=== PATIENT | male | born 1955 | race Caucasian/White ===

== ENCOUNTER 2018-08-23 09:31 | Emergency (ER) | payer OTHER ==
--- NOTE | 2018-08-23 09:35 | ERPHSYRPT ---
- History of Present Illness Time Seen by Provider: 08/23/18 09:34 Source: patient, family Exam Limitations: no limitations Physician History: 63 y/o white male with h/o parkinsons dz and uri recently started on zpack, presents with cough and mild soa. pt brought into ED via EMS. pt received a kenalog injection 2 days ago. pt also received a saline neb tx by EMS seating captain. pt states he is feeling better on arrival. pt denies cp, denies abd pain. pt states he would feel better if he could cough up mucous/sputum. because pts parkinsons dz, pt unable to take a deep breath or give a strong cough. Activities at Onset: none Severity of Dyspnea-Max: mild Severity of Dyspnea-Current: mild Possible Cause: occasional episodes Modifying Factors: Improves With: coughing Associated Symptoms: intermittent, cough Allergies/Adverse Reactions: No Known Drug Allergies Allergy (Verified 12/20/11 15:28) Home Medications: Aspirin 162 mg PO DAILY 12/20/11 [History] Pravastatin Sodium 40 mg PO DAILY 12/20/11 [History] Lisinopril 40 mg PO DAILY 07/28/12 [History] Carbidopa/Levodopa [Sinemet 25-250 mg Tablet] 2 tab PO TID 08/23/18 [History] Chlorthalidone 12.5 mg PO DAILY 08/23/18 [History] Clopidogrel Bisulfate 75 mg [PLAVIX 75 MG Tablet] 75 mg PO DAILY 08/23/18 [History] Cyanocobalamin (Vitamin B-12) [Vitamin B12] 5,000 mcg PO DAILY 08/23/18 [History ] Guaifenesin [Mucinex] 600 mg PO BID 08/23/18 [History] Loratadine 10 mg [Claritin 10 mg] 10 mg PO DAILY 08/23/18 [History] Metoprolol Succinate 100 mg [Toprol Xl 100 MG] 100 mg PO DAILY 08/23/18 [ History] Mirabegron [Myrbetriq] 50 mg PO DAILY 08/23/18 [History] Tamsulosin HCl 0.4 mg PO HS 08/23/18 [History] Testosterone Cypionate 100 mg IM UD 08/23/18 [History] Hx Tetanus, Diphtheria Vaccination/Date Given: Yes Hx Influenza Vaccination/Date Given: Yes (fall 2011) Hx Pneumococcal Vaccination/Date Given: No - Review of Systems Constitutional: No Symptoms Eyes: No Symptoms Ears, Nose, & Throat: No Symptoms Respiratory: Cough, Dyspnea (mild) Cardiac: No Symptoms Abdominal/Gastrointestinal: No Symptoms, No Abdominal Pain, No Nausea, No Vomiting, No Diarrhea Genitourinary Symptoms: No Symptoms Musculoskeletal: No Symptoms Skin: No Symptoms Neurological: No Symptoms Psychological: No Symptoms Endocrine: No Symptoms Hematologic/Lymphatic: No Symptoms Immunological/Allergic: No Symptoms All Other Systems: Reviewed and Negative - Past Medical History Pertinent Past Medical History: Yes Neurological History: Other ENT History: No Pertinent History Cardiac History: Coronary Artery Disease, High Cholesterol, Hypertension Respiratory History: Bronchitis, Other Endocrine Medical History: No Pertinent History Musculoskeletal History: Osteoarthritis GI Medical History: Hernia History: No Pertinent History Psycho-Social History: No Pertinent History Male Reproductive Disorders: Prostate Problems Other Medical History: HX OF PROSTATE CANCER (PER PATIENT WASN'T TREATED). STATES RECENT ASSESSMENT OF BREATHING FOUND VOCAL CORDS WEREN'T OPENING ALL THE WAY WITH DEEP BREATHING SO CAUSING SHORTNESS OF BREATH. HAD MRI AT [facility] IN [place] AND HAS F/U WITH [facility] IN JUNE - Past Surgical History Past Surgical History: Yes Neuro Surgical History: No Pertinent History Cardiac: Angioplasty Respiratory: No Pertinent History Gastrointestinal: Hernia Repair Genitourinary: No Pertinent History Musculoskeletal: No Pertinent History Male Surgical History: No Pertinent History Other Surgical History: sinus surgery - Social History Smoking Status: Former smoker Exposure to second hand smoke: Yes Drug Use: none Patient Lives Alone: No - Nursing Vital Signs Nursing Vital Signs: Initial Vital Signs Temperature 98.2 F 08/23/18 09:41 Pulse Rate 85 08/23/18 09:41 Respiratory Rate 18 08/23/18 09:41 Blood Pressure 121/86 08/23/18 09:41 O2 Sat by Pulse Oximetry 95 08/23/18 09:41 Pain Scale Pain Intensity 0 - Physical Exam General Appearance: mild distress, alert Eye Exam: PERRL/EOMI, eyes nml inspection Ears, Nose, Throat Exam: hearing grossly normal, normal ENT inspection, normal pharynx Neck Exam: normal inspection, non-tender, supple, full range of motion Respiratory Exam: normal breath sounds, lungs clear, airway intact, No chest tenderness, No respiratory distress, No accessory muscle use, No rhonchi, No wheezing, No stridor Cardiovascular/Chest Exam: normal heart sounds, regular rate/rhythm, normal peripheral pulses Abdominal/Gastrointestinal Exam: soft, normal bowel sounds, No tenderness Rectal Exam: not done Extremity Exam: non-tender, normal range of motion, normal inspection Neurologic Exam: alert, oriented x 3, cooperative, 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, normal mood/affect Skin Exam: normal color, warm, dry Lymphatic Exam: No adenopathy SpO2 Interpretation: normal O2 Delivery: Room Air - Course Nursing assessment & vital signs reviewed: Yes EKG Interpreted by Me: RATE (85), Sinus Rhythm, NORMAL AXIS, Non-specific ST Changes, Other (no change from comparison ekg dated 07/29/12 ) Ordered Tests: Active Orders 24 hr Category Date Time Status Steel Finisher STAT Care 08/23/18 09:55 Active EKG-ER Only STAT Care 08/23/18 09:53 Active IV Insertion STAT Care 08/23/18 09:53 Active Pulse Oximetry (ED) STAT Care 08/23/18 09:53 Active CHEST 1 VIEW (PORTABLE) Stat Exams 08/23/18 09:54 Taken BLOOD CULTURE Stat Lab 08/23/18 10:10 Received CBC W DIFF Stat Lab 08/23/18 10:05 Completed CMP Stat Lab 08/23/18 10:05 Completed NT PRO BNP Stat Lab 08/23/18 10:05 Completed TROPONIN Q3H Lab 08/23/18 10:05 Completed TROPONIN Q3H Lab 08/23/18 13:00 Ordered TROPONIN Q3H Lab 08/23/18 16:00 Ordered TROPONIN Q3H Lab 08/23/18 19:00 Ordered TROPONIN Q3H Lab 08/23/18 22:00 Ordered Respiratory Therapy Assessment DAILY RT 08/23/18 10:50 Completed Medication Summary Generic Name Dose Route Start Last Admin Trade Name Freq PRN Reason Stop Dose Admin Acetylcysteine 3 mg 08/23/18 11:00 Mucomyst 200 Mg/Ml IH 09/22/18 10:59 1XONLY EDENILSON Albuterol Sulfate 5 mg 08/23/18 11:00 08/23/18 10:51 Proventil Solution 2.5 Mg/0.5 Ml IH 09/22/18 10:59 2.5 mg UD EDENILSON Administration Discontinued Medications Generic Name Dose Route Start Last Admin Trade Name Freq PRN Reason Stop Dose Admin Ceftriaxone Sodium/Dextrose 1 g in 50 mls @ 100 mls/hr 08/23/18 10:50 11:09 Rocephin 1 Gm-D5w 50 Ml Bag IV 08/23/18 11:19 100 ml/hr STAT STA 100 mls/hr Administration Ceftriaxone Sodium/Dextrose Confirm 08/23/18 11:08 Rocephin 1 Gm-D5w 50 Ml Bag Administered 08/23/18 11:09 Dose 1 g in 50 mls @ ud IV .STK-MED ONE Lab/Rad Data: Laboratory Result Diagrams 08/23/18 10:05 08/23/18 10:05 Laboratory Results 08/23/18 08/23/18 08/23/18 Range/Units 10:05 10:05 10:05 WBC 11.3 H (4.0-10.5) K/mm3 RBC 5.45 (4.1-5.6) M/mm3 Hgb 17.0 (12.5-18.0) gm/dl Hct 51.6 H (42-50) % MCV 94.7 (78-100) fl MCH 31.2 (26-32) pg MCHC 32.9 (32-36) g/dl RDW 13.2 (11.5-14.0) % Plt Count 215 (150-450) K/mm3 MPV 9.1 (6-9.5) fl Gran % 76.4 H (36.0-66.0) % Eos # (Auto) 0.14 (0-0.5) Absolute Lymphs (auto) 1.61 (1.0-4.6) Absolute Monos (auto) 0.88 (0.0-1.3) Lymphocytes % 14.3 L (24.0-44.0) % Monocytes % 7.8 (0.0-12.0) % Eosinophils % 1.2 (0.00-5.0) % Basophils % 0.3 (0.0-0.4) % Absolute Granulocytes 8.62 H (1.4-6.9) Basophils # 0.03 (0-0.4) Sodium 138 (137-145) mmol/L Potassium 3.6 (3.5-5.1) mmol/L Chloride 101 (98-107) mmol/L Carbon Dioxide 29 (22-30) mmol/L Anion Gap 12.2 (5-15) MEQ/L BUN 17 (9-20) mg/dL Creatinine 0.69 (0.66-1.25) mg/dL Estimated GFR > 60.0 ML/MIN Glucose 101 (74-106) mg/dL Calcium 9.0 (8.4-10.2) mg/dL Total Bilirubin 1.10 (0.2-1.3) mg/dL AST 20 (17-59) U/L ALT 6 (0-50) U/L Alkaline Phosphatase 86 (38-126) U/L Troponin I < 0.012 (0.000-0.034) ng/mL NT-Pro-B Natriuret Pep 55.6 (0-900) pg/mL Serum Total Protein 7.3 (6.3-8.2) g/dL Albumin 4.0 (3.5-5.0) g/dL - Progress Progress: improved, re-examined Air Movement: good Progress Note: 08/23/18 10:31 prior to pt receiving mucomyst, pharmacy contacted. Yeyo is to call us back as he checks for contraindications relative to pts parkinsons dz and his medications. 08/23/18 11:16 pt did not tolerate the mucomyst neb tx. will give rocephin iv, hold steroids since he just received kenalog(long acting)steroid injection 2 days ago, and will have pt double his mucinex dosing to 2 tabs 2 times daily instead of one tab 2 times daily. Blood Culture(s) Obtained: Yes Antibiotics given: Yes Counseled pt/family regarding: lab results, diagnosis, need for follow-up, rad results - Departure Time of Disposition: 11:19 Departure Disposition: Home Clinical Impression: Bronchitis Condition: Stable Critical Care Time: No Referrals: CHRISTINA VEE MD [Primary Care Provider] - Additional Instructions: take antibiotics as prescribed. drink plenty of fluids. take 2 mucinex tablets twice daily. follow up with primary doctor on Saturday for further management.
[2018-08-23 10:35] LABS: BASOPHIL % 0.3 % (0.0-0.4); Basophil (Absolute #) 0.03 (0-0.4); Eosinophil % 1.2 % (0.00-5.0); Eosinophil (Absolute #) 0.14 (0-0.5); Granulocyte Absolute (ANC) 8.62 (1.4-6.9); Granulocytes % 76.4 % (36.0-66.0); Hematocrit 51.6 % (42-50); Lymphocyte (Absolute #) 1.61 (1.0-4.6); Lymphocytes % 14.3 % (24.0-44.0); Mean Cell Volume 94.7 fl (78-100); Mean Corpuscular Hemoglobin 31.2 pg (26-32); Mean Corpuscular Hgb Concent. 32.9 g/dl (32-36); Mean Platelet Volume 9.1 fl (6-9.5); Monocyte (Absolute #) 0.88 (0.0-1.3); Monocytes % 7.8 % (0.0-12.0); Platelet Count 215 K/mm3 (150-450); Red Blood Count 5.45 M/mm3 (4.1-5.6); Red Cell Distribution Width 13.2 % (11.5-14.0); White Blood Count 11.3 K/mm3 (4.0-10.5)
[2018-08-23 10:50] LABS: ALKALINE PHOSPHATASE 86 U/L (38-126); ANION GAP 12.2 MEQ/L (5-15); BLOOD UREA NITROGEN 17 mg/dL (9-20); CHLORIDE 101 mmol/L (98-107); Carbon Dioxide 29 mmol/L (22-30); Creatinine 1 0.69 mg/dL (0.66-1.25); Glucose 101 mg/dL (74-106); NT PRO BNP 55.6 pg/mL (0-900); Potassium 3.6 mmol/L (3.5-5.1); SGOT/AST 20 U/L (17-59); SGPT/ALT 6 U/L (0-50); SODIUM 138 mmol/L (137-145); Total Protein 7.3 g/dL (6.3-8.2)
[2018-08-23] MEDS ORDERED: ROCEPHIN 1 Gm-D5w 50 ml Bag** 1 G/50 ML IVPB IV STA (10:50)
[2018-08-23] MEDS ORDERED: PROVENTIL Solution 2.5 MG/0.5 ML IH ONE (10:51)
[2018-08-23] MEDS ORDERED: PROVENTIL Solution 2.5 MG/0.5 ML IH SCH (11:00)
[2018-08-23] MEDS ORDERED: Mucomyst 200 MG/ML IH SCH (11:00)
[2018-08-23] MEDS ORDERED: ROCEPHIN 1 Gm-D5w 50 ml Bag** 1 G/50 ML IVPB IV ONE (11:08)
[2018-08-23 11:34] VITALS: BP 115/78; PULSE 86; O2SAT 93
--- NOTE | 2018-08-23 19:34 | XRAY ---
Indication: Cough. Short of breath. Comparison: August 07, 2012. Portable chest remains clear. Heart and mediastinal structures within normal limits for AP portable technique. Bony thorax intact again with mild degenerative changes. Impression: Stable nonacute chest.
== END 2018-08-23 11:41 | disposition home or self-care (01) ==
LOC: ED 09:31
DX: J40 Bronchitis, not specified as acute or chronic (principal); J06.9 Acute upper respiratory infection, unspecified; I10 Essential (primary) hypertension; G20 Parkinson's disease; I25.10 Atherosclerotic heart disease of native coronary artery without angina pectoris; E78.00 Pure hypercholesterolemia, unspecified; M19.90 Unspecified osteoarthritis, unspecified site; Z85.46 Personal history of malignant neoplasm of prostate; Z79.899 Other long term (current) drug therapy
CPT/HCPCS: 36000; 36415; 71045; 80053; 83880; 84484; 85025; 87040; 93005; 93041; 96365; 99284; J0696

== ENCOUNTER 2019-03-03 06:21 | Observation (INO) | payer OTHER ==
--- NOTE | 2019-03-03 07:01 | ERPHSYRPT ---
- History of Present Illness Source: patient, family Exam Limitations: physical impairment Patient Subjective Stated Complaint: Weakness Triage Nursing Assessment: Patient brought into ED via EMS and transferred to bed with assist of 4. Patient A+O X 3. Patient's skin pink, warm and dry. Patient complains of generalized weakness. Patient's states patient has been getting weak since Saturday. Patient was coming out of restroom last night and legs became weak and just sat on ground. was unable to get him up so EMS was called for lift assistance only. Patient's lung noted to have wheezes throughout. No edema noted. Heart tones audible. Timing/Duration: day(s) (2) Severity: mild Associated Symptoms: cough, weakness, No nausea, No vomiting Hx Tetanus, Diphtheria Vaccination/Date Given: Yes Hx Influenza Vaccination/Date Given: Yes Hx Pneumococcal Vaccination/Date Given: No Immunizations Up to Date: Yes <ERIKA GERMAIN - Last Filed: 03/03/19 06:56> <ODILON BLANK - Last Filed: 03/03/19 09:30> - History of Present Illness Time Seen by Provider: 03/03/19 06:45 Physician History: 63 y/o white male with h/o parkinsons dz, htn, elevated cholesterol adn cadz s/ p angioplasty and h/o prostate cancer. he presents with weakness, sinus drainage and cough. denies cp, denies abd pain, denies n/v/d. sx present for 2 days. (ERIKA GERMAIN) Allergies/Adverse Reactions: No Known Drug Allergies Allergy (Verified 03/03/19 06:24) Home Medications: Aspirin 162 mg PO DAILY 12/20/11 [History] Pravastatin Sodium 40 mg PO DAILY 12/20/11 [History] Lisinopril 5 mg PO DAILY 07/28/12 [History] Carbidopa/Levodopa [Sinemet 25-250 mg Tablet] 2 tab PO QID 08/23/18 [History] Chlorthalidone 12.5 mg PO DAILY 08/23/18 [History] Cyanocobalamin (Vitamin B-12) [Vitamin B12] 5,000 mcg PO DAILY 08/23/18 [History ] Guaifenesin [Mucinex] 600 mg PO BID 08/23/18 [History] Loratadine 10 mg [Claritin 10 mg] 10 mg PO DAILY 08/23/18 [History] Metoprolol Succinate 100 mg [Toprol Xl 100 MG] 100 mg PO DAILY 08/23/18 [ History] Mirabegron [Myrbetriq] 50 mg PO DAILY 08/23/18 [History] Tamsulosin HCl 0.4 mg PO HS 08/23/18 [History] Testosterone Cypionate 100 mg IM UD 08/23/18 [History] - Review of Systems Constitutional: Weakness Eyes: No Symptoms Ears, Nose, & Throat: No Symptoms Respiratory: Cough Cardiac: No Symptoms Abdominal/Gastrointestinal: No Symptoms Genitourinary Symptoms: No Symptoms Musculoskeletal: No Symptoms Skin: No Symptoms Neurological: No Symptoms Psychological: No Symptoms Endocrine: No Symptoms <ERIKA GERMAIN - Last Filed: 03/03/19 06:56> - Past Medical History Pertinent Past Medical History: Yes Neurological History: Peripheral Neuropathy, Other ENT History: No Pertinent History Cardiac History: Hypertension Respiratory History: Other Endocrine Medical History: No Pertinent History Musculoskeletal History: Arthritis GI Medical History: Hernia History: No Pertinent History Psycho-Social History: No Pertinent History Male Reproductive Disorders: Prostate Problems Other Medical History: HX OF ARTHRITIS IN NECK AND SHOULDER PRIOR TO DX OF PARKINSONS. 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 SX HX: SINUS SURGERY, HERNIA REPAIR ABDOMINAL AND INGUINAL, CARDIAC STENTS X 2, ACHILLES TENDON REATTACHED AFTER SURGERY FOR BONE SPUR REMOVAL 03/2016. - Past Surgical History Past Surgical History: Yes Neuro Surgical History: No Pertinent History Cardiac: Angioplasty, Cardiac Stent Respiratory: No Pertinent History Gastrointestinal: Hernia Repair Genitourinary: Other Musculoskeletal: No Pertinent History Male Surgical History: No Pertinent History Other Surgical History: sinus surgery, Cardiac stent,TURP - Social History Smoking Status: Former smoker Exposure to second hand smoke: No Drug Use: none Patient Lives Alone: No <ERIKA GERMAIN - Last Filed: 03/03/19 06:56> - Physical Exam General Appearance: mild distress, alert, anxiety Eye Exam: PERRL/EOMI, eyes nml inspection Ears, Nose, Throat Exam: normal ENT inspection, TMs normal, moist mucous membranes Neck Exam: normal inspection, non-tender, supple, full range of motion Respiratory Exam: normal breath sounds, lungs clear, airway intact, No chest tenderness, No respiratory distress Cardiovascular Exam: regular rate/rhythm, normal heart sounds, normal peripheral pulses Gastrointestinal/Abdomen Exam: soft, normal bowel sounds, No tenderness Rectal Exam: not done Back Exam: normal inspection, normal range of motion, vertebral tenderness, No CVA tenderness Extremity Exam: normal inspection, normal range of motion, pelvis stable Neurologic Exam: alert, oriented x 3, cooperative, mill 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 Skin Exam: normal color, warm, dry Lymphatic Exam: No adenopathy SpO2 Interpretation: normal SpO2: 96 O2 Delivery: Room Air <ERIKA GERMAIN - Last Filed: 03/03/19 06:56> - Nursing Vital Signs Nursing Vital Signs: Initial Vital Signs Temperature 98.8 F 03/03/19 06:25 Pulse Rate 67 03/03/19 06:25 Respiratory Rate 25 H 03/03/19 06:25 Blood Pressure 110/69 03/03/19 06:25 O2 Sat by Pulse Oximetry 96 03/03/19 06:25 Pain Scale Pain Intensity 0 - Radiology Exams Chest X-ray Interpretation: Reviewed by me (per radiologist interpretation: No acute cardiopulmonary process), Other (per radiologist interpretation: A symmetric focal attenuation of the right infrahilar bronchovascular lung markings. This may be due to a combination of mild atelectasis and fascia crabbing. In early air space infiltrates is not completely excluded. Correlate clinically. There is also some minimal plate atelectasis at the left lateral lung base. no other acute cardiopulmonary disease seen.) - CT Exams Head CT Interpretation: Negative, No/Intracranial Hemorrhag (per radiologist interpretation: No acute intracranial process;), Other (no acute intracranial bleed or other definite acute intracranial process seen. There is a defect within the medial wall of each) <ODILON BLANK - Last Filed: 03/03/19 09:30> Ordered Tests: Active Orders 24 hr Category Date Time Status Director Business Travel STAT Care 03/03/19 07:03 Active IV Insertion STAT Care 03/03/19 07:03 Active Pulse Oximetry (ED) STAT Care 03/03/19 07:03 Active CHEST 1 VIEW (PORTABLE) Stat Exams 03/03/19 07:02 Completed HEAD WITHOUT CONTRAST [CT] Stat Exams 03/03/19 07:02 Completed BLOOD CULTURE Stat Lab 03/03/19 07:16 Received CBC W DIFF Stat Lab 03/03/19 06:38 Completed CMP Stat Lab 03/03/19 07:02 Completed Lactic Acid Stat Lab 03/03/19 07:02 Completed Lab/Rad Data: Laboratory Result Diagrams 03/03/19 06:38 03/03/19 07:02 Laboratory Results 03/03/19 03/03/19 03/03/19 Range/Units 07:02 07:02 06:38 WBC (4.0-10.5) K/mm3 RBC (4.1-5.6) M/mm3 Hgb (12.5-18.0) gm/dl Hct (42-50) % MCV (78-100) fl MCH (26-32) pg MCHC (32-36) g/dl RDW (11.5-14.0) % Plt Count (150-450) K/mm3 MPV (6-9.5) fl Gran % (36.0-66.0) % Eos # (Auto) (0-0.5) Absolute Lymphs (auto) (1.0-4.6) Absolute Monos (auto) (0.0-1.3) Lymphocytes % (24.0-44.0) % Monocytes % (0.0-12.0) % Eosinophils % (0.00-5.0) % Basophils % (0.0-0.4) % Absolute Granulocytes (1.4-6.9) Basophils # (0-0.4) Sodium 139 (137-145) mmol/L Potassium 3.3 L (3.5-5.1) mmol/L Chloride 100 (98-107) mmol/L Carbon Dioxide 30 (22-30) mmol/L Anion Gap 12.7 (5-15) MEQ/L BUN 17 (9-20) mg/dL Creatinine 0.58 L (0.66-1.25) mg/dL Estimated GFR > 60.0 ML/MIN Glucose 119 H (74-106) mg/dL Lactic Acid 1.6 (0.4-2.0) Calcium 9.2 (8.4-10.2) mg/dL Total Bilirubin 1.50 H (0.2-1.3) mg/dL AST 20 (17-59) U/L ALT 7 (0-50) U/L Alkaline Phosphatase 79 (38-126) U/L Serum Total Protein 7.1 (6.3-8.2) g/dL Albumin 3.9 (3.5-5.0) g/dL Influenza Type A Ag NEGATIVE (NEGATIVE) Influenza Type B Ag NEGATIVE (NEGATIVE) RSV (PCR) NEGATIVE (Negative) Group A Strep Antibody NEGATIVE (NEGATIVE) 03/03/19 Range/Units 06:38 WBC 18.4 H (4.0-10.5) K/mm3 RBC 5.45 (4.1-5.6) M/mm3 Hgb 17.8 (12.5-18.0) gm/dl Hct 52.7 H (42-50) % MCV 96.7 (78-100) fl MCH 32.7 H (26-32) pg MCHC 33.8 (32-36) g/dl RDW 13.7 (11.5-14.0) % Plt Count 172 (150-450) K/mm3 MPV 9.2 (6-9.5) fl Gran % 82.4 H (36.0-66.0) % Eos # (Auto) 0.07 (0-0.5) Absolute Lymphs (auto) 1.52 (1.0-4.6) Absolute Monos (auto) 1.61 H (0.0-1.3) Lymphocytes % 8.3 L (24.0-44.0) % Monocytes % 8.8 (0.0-12.0) % Eosinophils % 0.4 (0.00-5.0) % Basophils % 0.1 (0.0-0.4) % Absolute Granulocytes 15.17 H (1.4-6.9) Basophils # 0.02 (0-0.4) Sodium (137-145) mmol/L Potassium (3.5-5.1) mmol/L Chloride (98-107) mmol/L Carbon Dioxide (22-30) mmol/L Anion Gap (5-15) MEQ/L BUN (9-20) mg/dL Creatinine (0.66-1.25) mg/dL Estimated GFR ML/MIN Glucose (74-106) mg/dL Lactic Acid (0.4-2.0) Calcium (8.4-10.2) mg/dL Total Bilirubin (0.2-1.3) mg/dL AST (17-59) U/L ALT (0-50) U/L Alkaline Phosphatase (38-126) U/L Serum Total Protein (6.3-8.2) g/dL Albumin (3.5-5.0) g/dL Influenza Type A Ag (NEGATIVE) Influenza Type B Ag (NEGATIVE) RSV (PCR) (Negative) Group A Strep Antibody (NEGATIVE) <ERIKA GERMAIN - Last Filed: 03/03/19 06:56> - Progress Discussed with Dr.: Other (Dr Goff, covering for Dr Santos. ) Counseled pt/family regarding: lab results, diagnosis, need for follow-up, rad results <ODILON BLANK - Last Filed: 03/03/19 09:30> - Progress Progress Note: 03/03/19 07:00 transfer of care to dr. blank. he was notified of pending tests and accepts pt in transfer. (ERIKA GERMAIN) 03/03/19 07:32 reexamination, the patient is clear to auscultation with no tachypnea, no accessory muscle use, clear auscultation with equal breath sounds throughout all lung rizzo and patient maintaining above 93% on room air. patient has perennial sinus congestion daily with worse nasal drainage and sinus congestion that worsened over the past 2 days. Patient takes Claritin once daily with Mucinex. 03/03/19 09:17 Reviewed results with the patient and his family. Patient still slightly hypoxic on room air and tachypneic. With possibility of pneumonia and his clinical presentation and findings with elevated WBC, patient was recommended for admission for admission and patient and his family agreed. 03/03/19 09:22 Discussed the patient with Dr Goff, Hospitalist at [facility], covering for Dr Santos. Dr Goff accepted the patient for observation to [facility]. (ODILON BLANK) <ERIKA GERMAIN - Last Filed: 03/03/19 06:56> - Departure Departure Disposition: Observation Critical Care Time: No <ODILON BLANK - Last Filed: 03/03/19 09:30> - Departure Clinical Impression: Hypoxia, Atelectasis of both lungs, Acute recurrent maxillary sinusitis Pneumonia Qualifiers: Pneumonia type: due to unspecified organism Laterality: right Lung location: unspecified part of lung Qualified Code(s): J18.9 - Pneumonia, unspecified organism Condition: Fair Referrals: CHRISTINA SANTOS MD [Primary Care Provider] -
[2019-03-03 07:19] LABS: BASOPHIL % 0.1 % (0.0-0.4); Basophil (Absolute #) 0.02 (0-0.4); Eosinophil % 0.4 % (0.00-5.0); Eosinophil (Absolute #) 0.07 (0-0.5); Granulocyte Absolute (ANC) 15.17 (1.4-6.9); Granulocytes % 82.4 % (36.0-66.0); Hematocrit 52.7 % (42-50); Hemoglobin 17.8 gm/dl (12.5-18.0); Lymphocyte (Absolute #) 1.52 (1.0-4.6); Lymphocytes % 8.3 % (24.0-44.0); Mean Cell Volume 96.7 fl (78-100); Mean Corpuscular Hemoglobin 32.7 pg (26-32); Mean Corpuscular Hgb Concent. 33.8 g/dl (32-36); Mean Platelet Volume 9.2 fl (6-9.5); Monocyte (Absolute #) 1.61 (0.0-1.3); Monocytes % 8.8 % (0.0-12.0); Platelet Count 172 K/mm3 (150-450); Red Blood Count 5.45 M/mm3 (4.1-5.6); Red Cell Distribution Width 13.7 % (11.5-14.0); White Blood Count 18.4 K/mm3 (4.0-10.5)
[2019-03-03 07:33] LABS: ALBUMIN 3.9 g/dL (3.5-5.0); ALKALINE PHOSPHATASE 79 U/L (38-126); ANION GAP 12.7 MEQ/L (5-15); BLOOD UREA NITROGEN 17 mg/dL (9-20); CHLORIDE 100 mmol/L (98-107); Calcium 9.2 mg/dL (8.4-10.2); Carbon Dioxide 30 mmol/L (22-30); Creatinine 1 0.58 mg/dL (0.66-1.25); Glucose 119 mg/dL (74-106); Potassium 3.3 mmol/L (3.5-5.1); SGOT/AST 20 U/L (17-59); SGPT/ALT 7 U/L (0-50); SODIUM 139 mmol/L (137-145); Total Protein 7.1 g/dL (6.3-8.2)
[2019-03-03 07:58] LABS: Group A Strep NEGATIVE (NEGATIVE)
[2019-03-03 08:21] LABS: INFLUENZA A NEGATIVE (NEGATIVE); INFLUENZA B NEGATIVE (NEGATIVE); RESPIRATORY SYNCTIAL VIRUS NEGATIVE (Negative)
--- NOTE | 2019-03-03 09:00 | XRAY ---
Exam: CT of the head without IV contrast from 03/03/2019. CTDI: 67.41 mGy. Comparison: None. Indication: 63-year-old male with weakness for 2-3 days, sinus drainage with pressure. Technique: Non-IV contrast axial images were obtained through the brain. Reconstructed coronal and sagittal images were created and reviewed. Findings: Occasional minimal motion artifact is seen. The ventricles appear of normal size and configuration. The head is slightly tilted in the CT gantry. No focal mass effect or definite midline shift is seen. Incidental heavy dural calcification is seen within the anterior aspect of the interhemispheric fissure. No acute intracranial bleed or abnormal extra-axial fluid collection is seen. The nelson matter-white matter interfaces appear unremarkable. No low attenuation territorial infarct or focal edema is seen. The cortical sulci and basilar cisterns appear unremarkable for age. Moderate peripheral mucoperiosteal thickening is seen within the left maxillary antrum with mild strand-like opacification at the superior posterior margin of the left maxillary antrum. No significant air-fluid level is seen. There is also questionable minimal mucosal thickening at the medial margin of the right maxillary sinus. The ostiomeatal complex on the left is either severely narrowed or blocked. The ostiomeatal complex on the right appears open. There is a bone defect within the medial wall of each maxillary sinus suggesting prior's paranasal sinus surgery. Mild deviation of the nasal septum toward the right is seen. The frontal and ethmoid sinuses appear unremarkable. The sphenoid sinus appears unremarkable. The orbits appear grossly unremarkable. The mastoid air cells are well aerated without effusion. The calvarium of the skull appears intact. Impression: 1. Occasional minimal motion artifact. 2. No acute intracranial bleed or other definite acute intracranial process is seen. 3. There is a defect within the medial wall of each maxillary sinus suggesting prior paranasal sinus surgery. Residual left maxillary sinus disease is seen manifested by mild to moderate scattered mucoperiosteal thickening as well as a small amount of strand-like opacity at the superior posterior margin of the left maxillary sinus. No significant air-fluid level is seen. The left ostiomeatal complex is either severely narrowed or blocked. There is mild deviation of the nasal septum toward the right. No other significant paranasal sinus mucosal abnormality is seen.
--- NOTE | 2019-03-03 09:03 | XRAY ---
Exam: AP upright portable chest film from 03/03/2019. Comparison: Two-view chest from 09/16/2018. Indication: 63-year-old male with weakness for 3 days, history of coronary artery stents. Findings: The transverse heart size appears within normal limits for this AP portable technique. The nolberto and mediastinal structures reveal no abnormal soft tissue masses or definite pathologic lymphadenopathy. There is mild tortuosity of the descending thoracic aorta. The lungs are adequately inflated. There is some accentuation of the bronchovascular lung markings within the right infrahilar projection which could represent a combination of atelectasis and vascular crowding. An early airspace infiltrate is not completely excluded. Correlate clinically. I also note minimal transverse plate atelectasis at the lateral left lung base. The remainder of the lung rizzo appears clear. No pulmonary vascular redistribution to the upper lung rizzo, pneumothorax, Krissy B-lines, or pleural fluid is seen. Moderate lateral osteophytes are seen within the lower thoracic spine. No acute osseous process is seen. Impression: 1. There is some asymmetric focal accentuation of the right infrahilar bronchovascular lung markings. This may be due to a combination of mild atelectasis and vascular crowding. An early airspace infiltrate is not completely excluded. Correlate clinically. 2. There is also some minimal plate atelectasis at the lateral left lung base. 3. No other acute cardiac pulmonary disease is seen.
[2019-03-03] MEDS ORDERED: ROCEPHIN 1 Gm-D5w 50 ml Bag** 1 G/50 ML IVPB IV STA (09:20)
[2019-03-03] MEDS ORDERED: ROCEPHIN 1 Gm-D5w 50 ml Bag** 1 G/50 ML IVPB IV ONE (09:35)
[2019-03-03] MEDS ORDERED: Zithromax 250 MG TABLET PO SCH (10:02)
[2019-03-03] MEDS: ROCEPHIN 1 Gm-D5w 50 ml Bag** 1 G/50 ML IVPB IV SCH (10:06)
[2019-03-03] MEDS: Sodium Chloride 0.9% 1000 ML 1,000 ML IV SCH (10:21)
[2019-03-03 10:52] LABS: Slide Review 1 YES
[2019-03-03] MEDS: Zithromax 500 MG/ 250 ML NaCl Premix 500 MG/250 ML IVPB IV SCH (11:43)
[2019-03-03] MEDS ORDERED: DUONEB 0.5-3 MG/3 ml Neb IH SCH (13:00)
[2019-03-03] MEDS ORDERED: PROVENTIL 2.5 MG/3 ML NEB IH PRN (13:00)
[2019-03-03] MEDS ORDERED: DEPO-TESTOSTERONE IM SCH (13:30)
[2019-03-03] MEDS ORDERED: MEDICATION INTERVENTION PO SCH ×4 (13:45)
[2019-03-03] MEDS: Mucinex 600MG ER Tabs PO SCH ×2 (14:15→20:25)
[2019-03-03] MEDS: Toprol Xl 100 MG PO SCH (14:16)
[2019-03-03] MEDS: CLARITIN 10 MG PO SCH (14:16)
[2019-03-03] MEDS: ZOCOR 20MG PO SCH (14:16)
[2019-03-03] MEDS: ECOTRIN 81 MG PO SCH (14:16)
[2019-03-03] MEDS: Sinemet 25/250 MG PO SCH ×2 (16:10→20:25)
[2019-03-03] MEDS: Colace 100 MG PO PRN (20:23)
[2019-03-03] MEDS: Flomax 0.4 MG PO SCH (20:25)
[2019-03-03] MEDS: TYLENOL 325 MG PO PRN (22:57)
[2019-03-04] MEDS: Sinemet 25/250 MG PO SCH ×4 (05:20→20:25)
[2019-03-04 06:24] LABS: Hematocrit 50.1 % (42-50); Hemoglobin 16.2 gm/dl (12.5-18.0); Mean Cell Volume 98.4 fl (78-100); Mean Corpuscular Hemoglobin 31.8 pg (26-32); Mean Corpuscular Hgb Concent. 32.3 g/dl (32-36); Platelet Count 165 K/mm3 (150-450); Red Blood Count 5.09 M/mm3 (4.1-5.6); Red Cell Distribution Width 13.9 % (11.5-14.0); White Blood Count 13.3 K/mm3 (4.0-10.5)
[2019-03-04 06:36] LABS: ANION GAP 11.1 MEQ/L (5-15); BLOOD UREA NITROGEN 17 mg/dL (9-20); CHLORIDE 100 mmol/L (98-107); Calcium 8.8 mg/dL (8.4-10.2); Carbon Dioxide 29 mmol/L (22-30); Creatinine 1 0.59 mg/dL (0.66-1.25); Glucose 86 mg/dL (74-106); Potassium 3.2 mmol/L (3.5-5.1); SODIUM 137 mmol/L (137-145)
--- NOTE | 2019-03-04 09:17 | PCM.HP ---
History of Present Illness - Chief Complaint Chief Complaint: WEAKNESS Date: 03/03/19 History of Present Illness: is a 63 year old male. Pt. presents to ER with complaints of extremity weakness. Pt. notes some SOB, but close to his normal level of sob. Pt. notes symptoms began a couple of days ago, with sinus drainage. Pt. also relays he is due for his IV immunoglobin treatment soon. - Review of Systems Constitutional: Other (subjective fever), No Fever, No Chills Eyes: No Symptoms Ears, Nose, & Throat: Nose Congestion, Nose Discharge, Sinus Drainage, No Ear Discharge, No Hearing Changes, No Tinnitus, No Nose Pain, No Mouth Swelling, No Throat Pain, No Throat Swelling Respiratory: Short Of Breath, No Cough Cardiac: No Chest Pain, No Edema, No Palpitations, No Orthopnea Abdominal/Gastrointestinal: No Abdominal Pain, No Nausea, No Vomiting, No Diarrhea Genitourinary Symptoms: No Dysuria Musculoskeletal: No Back Pain, No Neck Pain Skin: No Rash Medications & Allergies Home Medications: Home Medication List Pravastatin Sodium 40 mg PO DAILY 12/20/11 [History Confirmed 03/03/19] Lisinopril 5 mg PO DAILY 07/28/12 [History Confirmed 03/03/19] Carbidopa/Levodopa [Sinemet 25-250 mg Tablet] 2 tab PO QID 08/23/18 [History Confirmed 03/03/19] Chlorthalidone 12.5 mg PO DAILY 08/23/18 [History Confirmed 03/03/19] Cyanocobalamin (Vitamin B-12) [Vitamin B12] 5,000 mcg PO DAILY 08/23/18 [ History Confirmed 03/03/19] Guaifenesin [Mucinex] 600 mg PO BID 08/23/18 [History Confirmed 03/03/19] Loratadine 10 mg [Claritin 10 mg] 10 mg PO DAILY 08/23/18 [History Confirmed 03/03/19] Metoprolol Succinate 100 mg [Toprol Xl 100 MG] 100 mg PO DAILY 08/23/18 [ History Confirmed 03/03/19] Tamsulosin HCl 0.4 mg PO HS 08/23/18 [History Confirmed 03/03/19] Testosterone Cypionate 100 mg IM UD 08/23/18 [History Confirmed 03/03/19] Aspirin 81 gm Chew [Baby Aspirin 81 mg Chew] 2 tab PO DAILY 03/03/19 [ History Confirmed 03/03/19] Mirabegron [Myrbetriq] 50 mg PO DAILY 03/03/19 [History Confirmed 03/03/19] Allergies/Adverse Reactions: Allergies Allergy/AdvReac Type Severity Reaction Status Date / Time No Known Drug Allergies Allergy Verified 03/03/19 06:24 - Past Medical History Past Medical History: Yes Neurological History: Peripheral Neuropathy, Other ENT History: 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 SX HX: SINUS SURGERY, HERNIA REPAIR ABDOMINAL AND INGUINAL, CARDIAC STENTS X 2, ACHILLES TENDON REATTACHED AFTER SURGERY FOR BONE SPUR REMOVAL 03/2016. - Past Surgical History Past Surgical History: Yes Neuro Surgical History: No Pertinent History Cardiac History: Angioplasty, Cardiac Stent Respiratory Surgery: No Pertinent History GI Surgical History: Hernia Repair Genitourinary Surgical Hx: Other Musculskeletal Surgical Hx: No Pertinent History Male Surgical History: No Pertinent History Other Surgical History: sinus surgery, Cardiac stent,TURP - Social History Smoking Status: Former smoker Exposure to second hand smoke: No Alcohol: None Drug Use: none - Physical Exam Vital Signs: Vital Signs - 24 hr Temp Pulse Resp BP Pulse Ox 03/04/19 07:50 94 L 03/04/19 07:29 98.1 F 74 18 117/79 93 L 03/04/19 04:00 98.3 F 82 18 129/80 93 L 03/03/19 23:39 99.2 F 81 19 117/69 93 L 03/03/19 20:00 98.8 F 83 19 122/71 92 L 03/03/19 19:59 71 18 92 L 03/03/19 16:00 98.6 F 94 H 20 136/73 95 03/03/19 11:52 93 L 03/03/19 11:38 92 H 20 93 L 03/03/19 11:10 98.2 F 90 18 111/67 95 03/03/19 10:21 98.2 F 03/03/19 10:14 98.2 F 03/03/19 10:02 98.2 F General Appearance: no apparent distress Neurologic Exam: alert, oriented x 3, cooperative, normal mood/affect Eye Exam: PERRL/EOMI Ears, Nose, Throat Exam: normal ENT inspection, moist mucous membranes Neck Exam: normal inspection Respiratory Exam: prolonged expirations Cardiovascular Exam: regular rate/rhythm Gastrointestinal/Abdomen Exam: soft, normal bowel sounds, No tenderness, No distention, No mass, No guarding Extremity Exam: normal inspection Skin Exam: normal color, warm, dry, No rash, No petechiae Lymphatic Exam: No adenopathy Results - Labs Lab/Micro Results: Lab Results-Last 24 Hours 03/03/19 03/03/19 03/04/19 Range/Units 06:38 13:11 05:00 WBC 13.3 H (4.0-10.5) K/mm3 RBC 5.09 (4.1-5.6) M/mm3 Hgb 16.2 (12.5-18.0) gm/dl Hct 50.1 H (42-50) % MCV 98.4 (78-100) fl MCH 31.8 (26-32) pg MCHC 32.3 (32-36) g/dl RDW 13.9 (11.5-14.0) % Plt Count 165 (150-450) K/mm3 MPV 9.0 (6-9.5) fl Sodium (137-145) mmol/L Potassium (3.5-5.1) mmol/L Chloride (98-107) mmol/L Carbon Dioxide (22-30) mmol/L Anion Gap (5-15) MEQ/L BUN (9-20) mg/dL Creatinine (0.66-1.25) mg/dL Estimated GFR ML/MIN Glucose (74-106) mg/dL Calcium (8.4-10.2) mg/dL Troponin I < 0.012 (0.000-0.034) ng/mL Slides for Path Review YES 03/04/19 Range/Units 05:00 WBC (4.0-10.5) K/mm3 RBC (4.1-5.6) M/mm3 Hgb (12.5-18.0) gm/dl Hct (42-50) % MCV (78-100) fl MCH (26-32) pg MCHC (32-36) g/dl RDW (11.5-14.0) % Plt Count (150-450) K/mm3 MPV (6-9.5) fl Sodium 137 (137-145) mmol/L Potassium 3.2 L (3.5-5.1) mmol/L Chloride 100 (98-107) mmol/L Carbon Dioxide 29 (22-30) mmol/L Anion Gap 11.1 (5-15) MEQ/L BUN 17 (9-20) mg/dL Creatinine 0.59 L (0.66-1.25) mg/dL Estimated GFR > 60.0 ML/MIN Glucose 86 (74-106) mg/dL Calcium 8.8 (8.4-10.2) mg/dL Troponin I (0.000-0.034) ng/mL Slides for Path Review - Radiology Impressions Radiology Exams & Impressions: Radiology Procedures Category Date Time Status CHEST 1 VIEW (PORTABLE) Stat Exams 03/03/19 07:02 Completed HEAD WITHOUT CONTRAST [CT] Stat Exams 03/03/19 07:02 Completed - Other Procedures and Tests Respiratory Therapy 03/03/19 10:02 Oxygen Nasal Cannula 2 lpm 03/03/19 11:38 Respiratory Therapy Assessment DAILY 03/03/19 13:00 Incentive Spirometry TID Assessment/Plan (1) Acute recurrent maxillary sinusitis Current Visit: Yes Status: Acute Code(s): J01.01 - ACUTE RECURRENT MAXILLARY SINUSITIS (2) Pneumonia Current Visit: Yes Status: Acute Qualifiers: Pneumonia type: due to unspecified organism Laterality: right Lung location: unspecified part of lung Qualified Code(s): J18.9 - Pneumonia, unspecified organism Code(s): J18.9 - PNEUMONIA, UNSPECIFIED ORGANISM
[2019-03-04] MEDS: ROCEPHIN 1 Gm-D5w 50 ml Bag** 1 G/50 ML IVPB IV SCH (09:41)
[2019-03-04] MEDS: Toprol Xl 100 MG PO SCH (09:41)
[2019-03-04] MEDS: Mucinex 600MG ER Tabs PO SCH ×2 (09:41→20:24)
[2019-03-04] MEDS: ZOCOR 20MG PO SCH (09:41)
[2019-03-04] MEDS: CLARITIN 10 MG PO SCH (09:41)
[2019-03-04] MEDS: ECOTRIN 81 MG PO SCH (09:42)
--- NOTE | 2019-03-04 09:51 | PCM.NOTE ---
Date and Time: 03/04/19948 Subjective Assessment: patient reports he has not been up moving so unsure if his weakness is any better. has advanced parkinsonism so struggles to cough at all Objective Exam General Appearance: no apparent distress Neurologic Exam: alert, oriented x 3, other (speech is slow, movements are slow) Respiratory Exam: normal breath sounds, lungs clear, prolonged expirations, No respiratory distress Cardiovascular Exam: regular rate/rhythm, normal heart sounds Gastrointestinal/Abdomen Exam: soft, No tenderness, No mass Extremity Exam: normal inspection, normal range of motion OBJECTIVE DATA Vital Signs: Vital Signs - 24 hr Temp Pulse Resp BP Pulse Ox 03/04/19 07:50 94 L 03/04/19 07:29 98.1 F 74 18 117/79 93 L 03/04/19 04:00 98.3 F 82 18 129/80 93 L 03/03/19 23:39 99.2 F 81 19 117/69 93 L 03/03/19 20:00 98.8 F 83 19 122/71 92 L 03/03/19 19:59 71 18 92 L 03/03/19 16:00 98.6 F 94 H 20 136/73 95 03/03/19 11:52 93 L 03/03/19 11:38 92 H 20 93 L 03/03/19 11:10 98.2 F 90 18 111/67 95 03/03/19 10:21 98.2 F 90 18 111/67 95 03/03/19 10:14 98.2 F 90 18 111/67 95 03/03/19 10:02 98.2 F 90 18 111/67 95 Pain Assessment - Last Documented Pain Intensity 0 Pain Scale Used 0-10 Pain Scale Intake and Output: Intake & Output 03/01/19 03/02/19 03/03/19 03/04/19 11:59 11:59 11:59 11:59 Intake Total 2886 Output Total 150 Balance 2736 Weight 121.7 kg 121.6 kg Lab Results: Lab Results-Last 24 Hours 03/03/19 03/03/19 03/04/19 Range/Units 06:38 13:11 05:00 WBC 13.3 H (4.0-10.5) K/mm3 RBC 5.09 (4.1-5.6) M/mm3 Hgb 16.2 (12.5-18.0) gm/dl Hct 50.1 H (42-50) % MCV 98.4 (78-100) fl MCH 31.8 (26-32) pg MCHC 32.3 (32-36) g/dl RDW 13.9 (11.5-14.0) % Plt Count 165 (150-450) K/mm3 MPV 9.0 (6-9.5) fl Sodium (137-145) mmol/L Potassium (3.5-5.1) mmol/L Chloride (98-107) mmol/L Carbon Dioxide (22-30) mmol/L Anion Gap (5-15) MEQ/L BUN (9-20) mg/dL Creatinine (0.66-1.25) mg/dL Estimated GFR ML/MIN Glucose (74-106) mg/dL Calcium (8.4-10.2) mg/dL Troponin I < 0.012 (0.000-0.034) ng/mL Slides for Path Review YES 03/04/19 Range/Units 05:00 WBC (4.0-10.5) K/mm3 RBC (4.1-5.6) M/mm3 Hgb (12.5-18.0) gm/dl Hct (42-50) % MCV (78-100) fl MCH (26-32) pg MCHC (32-36) g/dl RDW (11.5-14.0) % Plt Count (150-450) K/mm3 MPV (6-9.5) fl Sodium 137 (137-145) mmol/L Potassium 3.2 L (3.5-5.1) mmol/L Chloride 100 (98-107) mmol/L Carbon Dioxide 29 (22-30) mmol/L Anion Gap 11.1 (5-15) MEQ/L BUN 17 (9-20) mg/dL Creatinine 0.59 L (0.66-1.25) mg/dL Estimated GFR > 60.0 ML/MIN Glucose 86 (74-106) mg/dL Calcium 8.8 (8.4-10.2) mg/dL Troponin I (0.000-0.034) ng/mL Slides for Path Review Radiology Exams: Radiology Procedures Category Date Time Status CHEST 1 VIEW (PORTABLE) Stat Exams 03/03/19 07:02 Completed HEAD WITHOUT CONTRAST [CT] Stat Exams 03/03/19 07:02 Completed Assessment/Plan (1) Pneumonia Current Visit: Yes Status: Acute Qualifiers: Pneumonia type: due to unspecified organism Laterality: right Lung location: unspecified part of lung Qualified Code(s): J18.9 - Pneumonia, unspecified organism Assessment & Plan: continue current treatment Code(s): J18.9 - PNEUMONIA, UNSPECIFIED ORGANISM (2) Weakness Current Visit: Yes Status: Acute Assessment & Plan: likely secondary to parkinsons and worsened with current infection, consult PT Code(s): R53.1 - WEAKNESS (3) Parkinson disease Current Visit: Yes Status: Acute Code(s): G20 - PARKINSON'S DISEASE
[2019-03-04] MEDS ORDERED: BABY ASPIRIN 81 MG CHEW PO SCH (10:00)
[2019-03-04] MEDS ORDERED: NON-FORMULARY ITEM (Pravastatin Sodium [Pravastatin Sodium] 40 MG) PO SCH (10:00)
[2019-03-04] MEDS ORDERED: CYANOCOBALAMIN 5000 MCG PO SCH (10:00)
[2019-03-04] MEDS ORDERED: CHLORTHALIDONE 12.5 MG PO SCH (10:00)
[2019-03-04] MEDS: Zithromax 500 MG/ 250 ML NaCl Premix 500 MG/250 ML IVPB IV SCH (10:26)
[2019-03-04] MEDS: Flomax 0.4 MG PO SCH (20:24)
[2019-03-04] MEDS: Colace 100 MG PO PRN (20:28)
[2019-03-04] MEDS: Sodium Chloride 0.9% 1000 ML 1,000 ML IV SCH (21:33)
[2019-03-05] MEDS: Sinemet 25/250 MG PO SCH ×4 (05:50→20:07)
--- NOTE | 2019-03-05 08:46 | PCM.NOTE ---
Date and Time: 03/05/19 0844 Subjective Assessment: patient is still very weak, didn't sleep well last night. urinating often with IV fluids, po intake is good. has some mild cough but has difficulty coughing due to parkinsons Objective Exam General Appearance: no apparent distress Neurologic Exam: alert, oriented x 3, cooperative Respiratory Exam: diminished breath sounds, prolonged expirations Cardiovascular Exam: regular rate/rhythm, normal heart sounds Gastrointestinal/Abdomen Exam: soft, No tenderness, No mass Extremity Exam: normal inspection, normal range of motion OBJECTIVE DATA Vital Signs: Vital Signs - 24 hr Temp Pulse Resp BP Pulse Ox 03/05/19 08:00 98.8 F 80 32 H 119/70 93 L 03/05/19 04:00 98.6 F 87 19 129/81 94 L 03/04/19 23:35 98.7 F 74 19 133/84 94 L 03/04/19 19:47 98.6 F 79 18 145/80 94 L 03/04/19 19:35 77 14 95 03/04/19 16:00 97.5 F 81 20 129/82 91 L 03/04/19 12:00 98.4 F 81 18 108/66 94 L Pain Assessment - Last Documented Pain Intensity 0 Pain Scale Used 0-10 Pain Scale Intake and Output: Intake & Output 03/02/19 03/03/19 03/04/19 03/05/19 11:59 11:59 11:59 11:59 Intake Total 3366 2529 Output Total 150 150 Balance 3216 2379 Weight 121.7 kg 121.6 kg Assessment/Plan (1) Pneumonia Current Visit: Yes Status: Acute Qualifiers: Pneumonia type: due to unspecified organism Laterality: right Lung location: unspecified part of lung Qualified Code(s): J18.9 - Pneumonia, unspecified organism Assessment & Plan: continue rocephin and zithromax, d/c iv fluids and check labs in am. clinically improving Code(s): J18.9 - PNEUMONIA, UNSPECIFIED ORGANISM (2) Weakness Current Visit: Yes Status: Acute Assessment & Plan: offered rehab stay, family to discuss. continue PT at this time. Code(s): R53.1 - WEAKNESS (3) Parkinson disease Current Visit: Yes Status: Acute Code(s): G20 - PARKINSON'S DISEASE
[2019-03-05] MEDS: ROCEPHIN 1 Gm-D5w 50 ml Bag** 1 G/50 ML IVPB IV SCH (08:52)
[2019-03-05] MEDS: Mucinex 600MG ER Tabs PO SCH ×2 (08:53→21:50)
[2019-03-05] MEDS: CLARITIN 10 MG PO SCH (08:53)
[2019-03-05] MEDS: ECOTRIN 81 MG PO SCH (08:53)
[2019-03-05] MEDS: ZOCOR 20MG PO SCH (08:53)
[2019-03-05] MEDS: Toprol Xl 100 MG PO SCH (08:53)
[2019-03-05] MEDS ORDERED: Vitamin B-12 500 MCG PO SCH (10:00)
[2019-03-05] MEDS: Zithromax 500 MG/ 250 ML NaCl Premix 500 MG/250 ML IVPB IV SCH (10:11)
[2019-03-05] MEDS: Sodium Chloride 0.9% 10 ML FLUSH Syringe IV SCH ×2 (18:14→21:51)
[2019-03-05] MEDS: NON-FORMULARY ITEM PO SCH (18:35)
[2019-03-05] MEDS: BENADRYL 25 MG CAPSULE PO PRN (21:49)
[2019-03-05] MEDS: Flomax 0.4 MG PO SCH (21:49)
[2019-03-05] MEDS: TYLENOL 325 MG PO PRN (21:50)
[2019-03-05] MEDS: Colace 100 MG PO PRN (21:51)
[2019-03-06 05:03] LABS: BASOPHIL % 0.3 % (0.0-0.4); Basophil (Absolute #) 0.02 (0-0.4); Eosinophil % 2.7 % (0.00-5.0); Eosinophil (Absolute #) 0.19 (0-0.5); Granulocyte Absolute (ANC) 4.47 (1.4-6.9); Granulocytes % 64.4 % (36.0-66.0); Hematocrit 48.5 % (42-50); Hemoglobin 15.7 gm/dl (12.5-18.0); Lymphocyte (Absolute #) 1.45 (1.0-4.6); Lymphocytes % 20.9 % (24.0-44.0); Mean Corpuscular Hemoglobin 31.4 pg (26-32); Mean Corpuscular Hgb Concent. 32.4 g/dl (32-36); Mean Platelet Volume 8.7 fl (6-9.5); Monocyte (Absolute #) 0.81 (0.0-1.3); Monocytes % 11.7 % (0.0-12.0); Platelet Count 177 K/mm3 (150-450); Red Cell Distribution Width 13.5 % (11.5-14.0); White Blood Count 6.9 K/mm3 (4.0-10.5)
[2019-03-06 05:28] LABS: ALBUMIN 3.3 g/dL (3.5-5.0); ALKALINE PHOSPHATASE 68 U/L (38-126); BLOOD UREA NITROGEN 14 mg/dL (9-20); CHLORIDE 103 mmol/L (98-107); Calcium 8.7 mg/dL (8.4-10.2); Carbon Dioxide 29 mmol/L (22-30); Creatinine 1 0.51 mg/dL (0.66-1.25); Glucose 87 mg/dL (74-106); MAGNESIUM 1.9 mg/dL (1.6-2.3); Potassium 3.3 mmol/L (3.5-5.1); SGOT/AST 19 U/L (17-59); SODIUM 140 mmol/L (137-145); Total Protein 6.3 g/dL (6.3-8.2)
[2019-03-06] MEDS: Sinemet 25/250 MG PO SCH ×4 (05:28→19:57)
[2019-03-06 05:29] LABS: SGPT/ALT 5 U/L (0-50)
[2019-03-06] MEDS: Sodium Chloride 0.9% 10 ML FLUSH Syringe IV SCH ×3 (05:46→19:57)
--- NOTE | 2019-03-06 08:17 | PCM.NOTE ---
Date and Time: 03/06/19814 Subjective Assessment: patient notes some improvement in his strength, still weak and has difficulty ambulating. no new concerns. Objective Exam General Appearance: no apparent distress, obese Neurologic Exam: alert, oriented x 3, other (slow speech, difficult to understand, slow movements) Skin Exam: normal color, warm, dry Respiratory Exam: normal breath sounds, lungs clear, No respiratory distress Cardiovascular Exam: regular rate/rhythm, normal heart sounds Gastrointestinal/Abdomen Exam: soft, No tenderness, No mass OBJECTIVE DATA Vital Signs: Vital Signs - 24 hr Temp Pulse Resp BP Pulse Ox 03/06/19 07:32 97.7 F 71 24 128/73 90 L 03/06/19 07:09 79 16 95 03/06/19 04:00 98.1 F 79 19 144/86 94 L 03/05/19 23:35 97.8 F 75 20 135/87 94 L 03/05/19 20:36 79 20 94 L 03/05/19 19:33 97.7 F 71 19 135/85 94 L 03/05/19 15:46 98.6 F 75 22 147/93 95 03/05/19 11:24 98.1 F 75 22 128/79 91 L 03/05/19 09:11 93 L Pain Assessment - Last Documented Pain Intensity 0 Pain Scale Used [facility] Intake and Output: Intake & Output 03/03/19 03/04/19 03/05/19 03/06/19 11:59 11:59 11:59 11:59 Intake Total 3366 2529 2260 Output Total 150 150 Balance 3216 2379 2260 Weight 121.7 kg 121.6 kg 124 kg Lab Results: Lab Results-Last 24 Hours 03/06/19 03/06/19 Range/Units 04:40 04:40 WBC 6.9 (4.0-10.5) K/mm3 RBC 5.00 (4.1-5.6) M/mm3 Hgb 15.7 (12.5-18.0) gm/dl Hct 48.5 (42-50) % MCV 97.0 (78-100) fl MCH 31.4 (26-32) pg MCHC 32.4 (32-36) g/dl RDW 13.5 (11.5-14.0) % Plt Count 177 (150-450) K/mm3 MPV 8.7 (6-9.5) fl Gran % 64.4 (36.0-66.0) % Eos # (Auto) 0.19 (0-0.5) Absolute Lymphs (auto) 1.45 (1.0-4.6) Absolute Monos (auto) 0.81 (0.0-1.3) Lymphocytes % 20.9 L (24.0-44.0) % Monocytes % 11.7 (0.0-12.0) % Eosinophils % 2.7 (0.00-5.0) % Basophils % 0.3 (0.0-0.4) % Absolute Granulocytes 4.47 (1.4-6.9) Basophils # 0.02 (0-0.4) Sodium 140 (137-145) mmol/L Potassium 3.3 L (3.5-5.1) mmol/L Chloride 103 (98-107) mmol/L Carbon Dioxide 29 (22-30) mmol/L Anion Gap 11.0 (5-15) MEQ/L BUN 14 (9-20) mg/dL Creatinine 0.51 L (0.66-1.25) mg/dL Estimated GFR > 60.0 ML/MIN Glucose 87 (74-106) mg/dL Calcium 8.7 (8.4-10.2) mg/dL Magnesium 1.9 (1.6-2.3) mg/dL Total Bilirubin 0.50 (0.2-1.3) mg/dL AST 19 (17-59) U/L ALT 5 (0-50) U/L Alkaline Phosphatase 68 (38-126) U/L Serum Total Protein 6.3 (6.3-8.2) g/dL Albumin 3.3 L (3.5-5.0) g/dL Multi-Disciplinary Progress Notes: Multi-Disciplinary Progress Notes 03/05/19 15:30 (created 03/05/19 15:49) Case Management Note by Kemi Mcmanus CALLED BACK, REPORTS THAT PRECERT HAS BEEN INITIATED, AND ALSO REPORTS THAT ACCORDING TO INSURANCE, [employer] IS IN NETWORK. HOPEFUL TO HEAR SOMETHING BACK TOMORROW. Initialized on 03/05/19 15:49 - END OF NOTE 03/05/19 15:00 (created 03/05/19 15:47) Case Management Note by Kemi Mcmanus SPOKE WITH , CHINO, SHE TOO IS IN AGREEMENT WITH REHAB STAY IF INSURANCE WILL APPROVE. ALSO, BACKUP PLAN DISCUSSED HOME WITH [facility]. CHINO REPORTS THAT SHE WILL TALK TO PT MOLINA. Initialized on 03/05/19 15:47 - END OF NOTE 03/05/19 14:00 (created 03/05/19 15:49) Case Management Note by Kemi Mcmanus REFERRAL FAXED TO [facility]. CALL TO HALLE TO REPORT. Initialized on 03/05/19 15:49 - END OF NOTE 03/05/19 13:47 Physical Therapy Note by Stephanie Marie PATIENT SEEN AGAIN THIS P.M. AGREED TO GET INTO BED TO WORK ON TRANSFERS AND EXERCISES. PATIENT STOOD FROM CHAIR WITH SBA ONLY. PERFORMED PIVOT TRANSFER WITH ROLLATOR AND CGA. NO LOSS OF BALANCE BUT DECREASED FOOT CLEARANCE. REQUIRED ASSIST FOR LOWER EXTREMITY PLACEMENT INTO BED AND USE OF OVERHEAD TRAPEZE TO POSITION SELF APPROPRIATELY IN BED. IN SUPINE PERFORMED SLR, HOOKLYING HIP FLEXION, LOWER TRUNK ROTATION, HIP AB/ADDUCTION, AND HEEL SLIDES. ABLE TO PERFORM 10 REPS ACTIVELY ON LEFT AND 5 REPS ACTIVELY ON RIGHT THEN ACTIVE ASSISTED. AFTER EXERCISES PERFORMED SUPINE TO SIT TRANSFER WITH TRAPEZE BAR AND MIN ASSIST. PATIENT STOOD AND AMBULATED 8' THEN TURN TO SIT IN CHAIR. NO LOSS OF BALANCE BUT SLOW AND UNABLE TO CLEAR RIGHT FOOT FULLY. STAND TO SIT WITH CGA. RECOMMENDING REHAB STAY IF INSURANCE APPROVES AND AT [facility] FOR CONTINUED THERAPY. DISCHARGE PLANNING AWARE OF P.T. RECOMMENDATIONS. Initialized on 03/05/19 13:47 - END OF NOTE 03/05/19 13:00 (created 03/05/19 15:44) Case Management Note by Kemi Mcmanus SPOKE WITH PT ABOUT POSSIBLE REHAB STAY AT [facility] ON DISCHARGE. DR. VEE HAD TALKED WITH PT WHEN HE MADE ROUNDS THIS MORNING. PT IS AGREEABLE TO GO FOR SHORT TERM REHAB STAY. REPORTS THAT HE WANTS DR. VEE TO REMAIN IN CHARGE OF HIS CARE, SO HE IS REQUESTING REFERRAL TO [facility]. DISCUSSED THAT WITH HIS PARTICULAR INSURANCE THAT THE JAIL WILL HAVE TO GET APPROVAL FROM HIS INSURANCE BEFORE HE CAN GO. PT VERBALIZED UNDERSTANDING. PLAN FOR TRANSITION TO SNF SHORT TERM REHAB STAY ON DISCHARGE. Initialized on 03/05/19 15:44 - END OF NOTE 03/05/19 11:16 Physical Therapy Note by Stephanie Marie PATIENT IN CHAIR UPON ARRIVAL TO ROOM. REPORTING HE DIDN'T SLEEP WELL LAST NIGHT AND IS TIRED. DOESN'T THINK HE CAN WALK RIGHT NOW. PERFORMED EXERCISES IN CHAIR - HIP FLEXION, KNEE EXTENSION, ANKLE PF/DF, HIP ADDUCTION ISOMETRIC, HIP ABDUCTION ISOMETRIC. PATIENT THEN PERFORMED SIT TO STAND WITH UE SUPPORT AND SBA/VERBAL CUES FOR POSTURE. REQUIRED CONTACT GUARD/TACTILE CUES TO ASSUME UPRIGHT POSTURE. PATIENT ATTEMPTED STANDING MARCHING. ABLE TO CLEAR LEFT FOOT BUT UNABLE TO CLEAR RIGHT. ASKED PATIENT IF HE WANTED TO TRY TO TAKE A FEW STEPS BUT DECLINED AGAIN STATING HE WAS TOO TIRED. PATIENT STATES WILL TRY AFTER LUNCH. RETURNED TO SITTING IN CHAIR WITH CONTACT GUARD ASSIST AND UE SUPPORT. PATIENT DID DEMONSTRATE GOOD KNOWLEDGE OF HAND PLACEMENT AND USING BRAKES ON ROLLATOR APPROPRIATELY. Initialized on 03/05/19 11:16 - END OF NOTE Assessment/Plan (1) Pneumonia Current Visit: Yes Status: Acute Qualifiers: Pneumonia type: due to unspecified organism Laterality: right Lung location: unspecified part of lung Qualified Code(s): J18.9 - Pneumonia, unspecified organism Assessment & Plan: on rocephin and zithromax, clinically improved. afebrile and wbc normalized. Code(s): J18.9 - PNEUMONIA, UNSPECIFIED ORGANISM (2) Weakness Current Visit: Yes Status: Acute Code(s): R53.1 - WEAKNESS (3) Parkinson disease Current Visit: Yes Status: Acute Assessment & Plan: appears to have rather advanced disease, will be receiving IVIG through his neurologist Dr Tapia. at this point we are planning a rehab stay at [place] to improve strength, functional capacity and steady his gait. Code(s): G20 - PARKINSON'S DISEASE
[2019-03-06] MEDS ORDERED: NON-FORMULARY ITEM PO SCH ×2 (10:00)
[2019-03-06] MEDS: ECOTRIN 81 MG PO SCH (10:27)
[2019-03-06] MEDS: CLARITIN 10 MG PO SCH (10:27)
[2019-03-06] MEDS: ZOCOR 20MG PO SCH (10:27)
[2019-03-06] MEDS: Toprol Xl 100 MG PO SCH (10:27)
[2019-03-06] MEDS: Mucinex 600MG ER Tabs PO SCH ×2 (10:28→22:14)
[2019-03-06] MEDS: NON-FORMULARY ITEM PO SCH (10:29)
[2019-03-06] MEDS: ROCEPHIN 1 Gm-D5w 50 ml Bag** 1 G/50 ML IVPB IV SCH (10:30)
[2019-03-06] MEDS: Zithromax 500 MG/ 250 ML NaCl Premix 500 MG/250 ML IVPB IV SCH (10:31)
[2019-03-06] MEDS: Colace 100 MG PO PRN (22:13)
[2019-03-06] MEDS: BENADRYL 25 MG CAPSULE PO PRN (22:13)
[2019-03-06] MEDS: Flomax 0.4 MG PO SCH (22:14)
[2019-03-06] MEDS: TYLENOL 325 MG PO PRN (22:14)
[2019-03-07 04:14] LABS: BASOPHIL % 0.3 % (0.0-0.4); Basophil (Absolute #) 0.02 (0-0.4); Eosinophil % 2.8 % (0.00-5.0); Eosinophil (Absolute #) 0.18 (0-0.5); Granulocyte Absolute (ANC) 3.72 (1.4-6.9); Granulocytes % 57.9 % (36.0-66.0); Hematocrit 49.4 % (42-50); Hemoglobin 16.2 gm/dl (12.5-18.0); Lymphocyte (Absolute #) 1.75 (1.0-4.6); Lymphocytes % 27.2 % (24.0-44.0); Mean Cell Volume 96.5 fl (78-100); Mean Corpuscular Hemoglobin 31.6 pg (26-32); Mean Corpuscular Hgb Concent. 32.8 g/dl (32-36); Mean Platelet Volume 8.6 fl (6-9.5); Monocyte (Absolute #) 0.76 (0.0-1.3); Monocytes % 11.8 % (0.0-12.0); Platelet Count 178 K/mm3 (150-450); Red Blood Count 5.12 M/mm3 (4.1-5.6); Red Cell Distribution Width 13.4 % (11.5-14.0); White Blood Count 6.4 K/mm3 (4.0-10.5)
[2019-03-07 04:25] LABS: ANION GAP 9.4 MEQ/L (5-15); BLOOD UREA NITROGEN 12 mg/dL (9-20); CHLORIDE 102 mmol/L (98-107); Calcium 8.8 mg/dL (8.4-10.2); Carbon Dioxide 30 mmol/L (22-30); Glucose 88 mg/dL (74-106); Potassium 3.2 mmol/L (3.5-5.1); SODIUM 139 mmol/L (137-145)
[2019-03-07] MEDS: Sinemet 25/250 MG PO SCH ×4 (05:30→20:22)
[2019-03-07] MEDS: Sodium Chloride 0.9% 10 ML FLUSH Syringe IV SCH ×3 (05:31→21:09)
--- NOTE | 2019-03-07 08:04 | PCM.NOTE ---
Date and Time: 03/07/19 0759 Subjective Assessment: Pt. states feeling ok at this time, no new complaints. - Review of Systems Constitutional: No Symptoms Ears, Nose, & Throat: No Symptoms Respiratory: No Symptoms Cardiac: No Symptoms Abdominal/Gastrointestinal: No Symptoms Objective Exam General Appearance: no apparent distress, alert Neurologic Exam: alert Skin Exam: normal color Neck Exam: normal inspection Respiratory Exam: normal breath sounds Cardiovascular Exam: regular rate/rhythm OBJECTIVE DATA Vital Signs: Vital Signs - 24 hr Temp Pulse Resp BP Pulse Ox 03/07/19 07:27 98.0 F 74 19 122/80 92 L 03/07/19 04:22 97.9 F 71 18 154/91 93 L 03/06/19 23:34 98.3 F 73 22 141/88 94 L 03/06/19 20:19 80 18 96 03/06/19 19:46 98.7 F 78 18 133/78 98 03/06/19 16:00 97.9 F 75 22 125/77 92 L 03/06/19 12:00 97.9 F 75 22 125/77 92 L Pain Assessment - Last Documented Pain Intensity 4 Pain Scale Used [facility] Intake and Output: Intake & Output 03/04/19 03/05/19 03/06/19 03/07/19 11:59 11:59 11:59 11:59 Intake Total 3366 2529 2260 879 Output Total 150 150 Balance 3216 2379 2260 879 Weight 121.6 kg 124 kg 109.1 kg Lab Results: Lab Results-Last 24 Hours 03/07/19 03/07/19 Range/Units 04:24 04:24 WBC 6.4 (4.0-10.5) K/mm3 RBC 5.12 (4.1-5.6) M/mm3 Hgb 16.2 (12.5-18.0) gm/dl Hct 49.4 (42-50) % MCV 96.5 (78-100) fl MCH 31.6 (26-32) pg MCHC 32.8 (32-36) g/dl RDW 13.4 (11.5-14.0) % Plt Count 178 (150-450) K/mm3 MPV 8.6 (6-9.5) fl Gran % 57.9 (36.0-66.0) % Eos # (Auto) 0.18 (0-0.5) Absolute Lymphs (auto) 1.75 (1.0-4.6) Absolute Monos (auto) 0.76 (0.0-1.3) Lymphocytes % 27.2 (24.0-44.0) % Monocytes % 11.8 (0.0-12.0) % Eosinophils % 2.8 (0.00-5.0) % Basophils % 0.3 (0.0-0.4) % Absolute Granulocytes 3.72 (1.4-6.9) Basophils # 0.02 (0-0.4) Sodium 139 (137-145) mmol/L Potassium 3.2 L (3.5-5.1) mmol/L Chloride 102 (98-107) mmol/L Carbon Dioxide 30 (22-30) mmol/L Anion Gap 9.4 (5-15) MEQ/L BUN 12 (9-20) mg/dL Creatinine 0.50 L (0.66-1.25) mg/dL Estimated GFR > 60.0 ML/MIN Glucose 88 (74-106) mg/dL Calcium 8.8 (8.4-10.2) mg/dL Multi-Disciplinary Progress Notes: Multi-Disciplinary Progress Notes 03/06/19 10:20 (created 03/06/19 10:52) Case Management Note by Kemi Mcmanus FAXED UPDATED P.T. NOTE TO [employer] PER INSURANCE REQUEST. AWAIT APPROVAL FROM INSURANCE FOR PT TO TRANSITION TO [place] FOR SHORT TERM SKILLED REHAB STAY. Initialized on 03/06/19 10:52 - END OF NOTE Assessment/Plan (1) Acute recurrent maxillary sinusitis Current Visit: Yes Status: Acute Assessment & Plan: continue abx Code(s): J01.01 - ACUTE RECURRENT MAXILLARY SINUSITIS (2) Pneumonia Current Visit: Yes Status: Acute Qualifiers: Pneumonia type: due to unspecified organism Laterality: right Lung location: unspecified part of lung Qualified Code(s): J18.9 - Pneumonia, unspecified organism Assessment & Plan: continue abx Code(s): J18.9 - PNEUMONIA, UNSPECIFIED ORGANISM (3) Hypokalemia Current Visit: Yes Status: Acute Assessment & Plan: give additional potassium and recheck in am Code(s): E87.6 - HYPOKALEMIA
[2019-03-07] MEDS: Mucinex 600MG ER Tabs PO SCH ×2 (09:24→21:08)
[2019-03-07] MEDS: Klor Con 10 MEQ PO SCH (09:24)
[2019-03-07] MEDS: Toprol Xl 100 MG PO SCH (09:24)
[2019-03-07] MEDS: ECOTRIN 81 MG PO SCH (09:24)
[2019-03-07] MEDS: CLARITIN 10 MG PO SCH (09:24)
[2019-03-07] MEDS: ZOCOR 20MG PO SCH (09:24)
[2019-03-07] MEDS: PATIENT OWN MEDICATION PO SCH ×3 (09:26→09:27)
[2019-03-07] MEDS: ROCEPHIN 1 Gm-D5w 50 ml Bag** 1 G/50 ML IVPB IV SCH (09:27)
[2019-03-07] MEDS: Zithromax 500 MG/ 250 ML NaCl Premix 500 MG/250 ML IVPB IV SCH (10:23)
[2019-03-07] MEDS ORDERED: Miralax Powder 17GM PACKET PO PRN (20:05)
[2019-03-07] MEDS: Flomax 0.4 MG PO SCH (21:08)
[2019-03-07] MEDS: BENADRYL 25 MG CAPSULE PO PRN (21:09)
[2019-03-07] MEDS: TYLENOL 325 MG PO PRN (21:09)
[2019-03-07] MEDS: Colace 100 MG PO PRN (21:09)
[2019-03-08] MEDS: Sinemet 25/250 MG PO SCH ×4 (04:05→19:43)
[2019-03-08] MEDS: Sodium Chloride 0.9% 10 ML FLUSH Syringe IV SCH ×3 (04:08→21:48)
[2019-03-08 04:38] LABS: ANION GAP 9.9 MEQ/L (5-15); BLOOD UREA NITROGEN 12 mg/dL (9-20); CHLORIDE 101 mmol/L (98-107); Calcium 9.2 mg/dL (8.4-10.2); Carbon Dioxide 31 mmol/L (22-30); Creatinine 1 0.54 mg/dL (0.66-1.25); Glucose 91 mg/dL (74-106); Potassium 3.6 mmol/L (3.5-5.1); SODIUM 139 mmol/L (137-145)
[2019-03-08] MEDS ORDERED: PATIENT OWN MEDICATION IM SCH (08:00)
--- NOTE | 2019-03-08 08:53 | PCM.NOTE ---
Date and Time: 03/08/19 0852 Subjective Assessment: Pt. feeling good, looks good. Potassium has normalized this am. - Review of Systems Constitutional: No Fever, No Chills Respiratory: No Cough, No Short Of Breath Cardiac: No Chest Pain, No Edema, No Syncope Abdominal/Gastrointestinal: No Abdominal Pain, No Nausea, No Vomiting, No Diarrhea Skin: No Rash Objective Exam General Appearance: no apparent distress, alert Neurologic Exam: alert, oriented x 3, cooperative, normal mood/affect, No motor deficits Skin Exam: normal color, warm, dry Ears, Nose, Throat Exam: normal ENT inspection, moist mucous membranes Neck Exam: normal inspection, non-tender, supple, full range of motion Respiratory Exam: normal breath sounds, lungs clear, No respiratory distress Cardiovascular Exam: regular rate/rhythm, normal heart sounds OBJECTIVE DATA Vital Signs: Vital Signs - 24 hr Temp Pulse Resp BP Pulse Ox 03/08/19 08:00 98.4 F 76 18 128/76 93 L 03/08/19 06:59 74 18 93 L 03/08/19 04:05 98.4 F 78 24 135/81 91 L 03/07/19 23:45 98.7 F 71 22 156/87 94 L 03/07/19 20:56 74 24 94 L 03/07/19 19:24 98.2 F 74 24 146/80 94 L 03/07/19 16:00 98.1 F 69 18 139/95 91 L 03/07/19 13:43 71 18 93 L 03/07/19 12:00 98.3 F 76 18 129/81 92 L Pain Assessment - Last Documented Pain Intensity 0 Pain Scale Used [facility] Intake and Output: Intake & Output 03/05/19 03/06/19 03/07/19 03/08/19 11:59 11:59 11:59 11:59 Intake Total 2529 2260 1119 830 Output Total 150 Balance 2379 2260 1119 830 Weight 124 kg 109.1 kg 124.6 kg Lab Results: Lab Results-Last 24 Hours 03/08/19 Range/Units 04:25 Sodium 139 (137-145) mmol/L Potassium 3.6 (3.5-5.1) mmol/L Chloride 101 (98-107) mmol/L Carbon Dioxide 31 H (22-30) mmol/L Anion Gap 9.9 (5-15) MEQ/L BUN 12 (9-20) mg/dL Creatinine 0.54 L (0.66-1.25) mg/dL Estimated GFR > 60.0 ML/MIN Glucose 91 (74-106) mg/dL Calcium 9.2 (8.4-10.2) mg/dL Assessment/Plan (1) Acute recurrent maxillary sinusitis Current Visit: Yes Status: Acute Code(s): J01.01 - ACUTE RECURRENT MAXILLARY SINUSITIS (2) Pneumonia Current Visit: Yes Status: Acute Qualifiers: Pneumonia type: due to unspecified organism Laterality: right Lung location: unspecified part of lung Qualified Code(s): J18.9 - Pneumonia, unspecified organism Code(s): J18.9 - PNEUMONIA, UNSPECIFIED ORGANISM (3) Hypokalemia Current Visit: Yes Status: Acute Code(s): E87.6 - HYPOKALEMIA
[2019-03-08] MEDS: ECOTRIN 81 MG PO SCH (09:06)
[2019-03-08] MEDS: ZOCOR 20MG PO SCH (09:06)
[2019-03-08] MEDS: Mucinex 600MG ER Tabs PO SCH ×2 (09:06→21:48)
[2019-03-08] MEDS: Colace 100 MG PO PRN ×2 (09:06→21:48)
[2019-03-08] MEDS: Toprol Xl 100 MG PO SCH (09:07)
[2019-03-08] MEDS: Klor Con 10 MEQ PO SCH (09:07)
[2019-03-08] MEDS: CLARITIN 10 MG PO SCH (09:07)
[2019-03-08] MEDS: PATIENT OWN MEDICATION PO SCH ×3 (09:08→09:10)
[2019-03-08] MEDS: ROCEPHIN 1 Gm-D5w 50 ml Bag** 1 G/50 ML IVPB IV SCH (09:09)
[2019-03-08] MEDS: Zithromax 500 MG/ 250 ML NaCl Premix 500 MG/250 ML IVPB IV SCH (10:32)
[2019-03-08] MEDS: Flomax 0.4 MG PO SCH (21:48)
[2019-03-08] MEDS: TYLENOL 325 MG PO PRN (21:49)
[2019-03-08] MEDS: BENADRYL 25 MG CAPSULE PO PRN (21:52)
[2019-03-09] MEDS: Sodium Chloride 0.9% 10 ML FLUSH Syringe IV SCH ×3 (04:43→21:05)
[2019-03-09] MEDS: Sinemet 25/250 MG PO SCH ×4 (04:43→20:20)
[2019-03-09 05:00] LABS: Hematocrit 50.8 % (42-50); Hemoglobin 16.9 gm/dl (12.5-18.0); Mean Cell Volume 95.8 fl (78-100); Mean Corpuscular Hemoglobin 31.9 pg (26-32); Mean Corpuscular Hgb Concent. 33.3 g/dl (32-36); Mean Platelet Volume 8.6 fl (6-9.5); Platelet Count 195 K/mm3 (150-450); Red Cell Distribution Width 13.3 % (11.5-14.0); White Blood Count 7.5 K/mm3 (4.0-10.5)
[2019-03-09 05:12] LABS: ANION GAP 11.3 MEQ/L (5-15); BLOOD UREA NITROGEN 12 mg/dL (9-20); CHLORIDE 101 mmol/L (98-107); Calcium 9.1 mg/dL (8.4-10.2); Carbon Dioxide 33 mmol/L (22-30); Creatinine 1 0.54 mg/dL (0.66-1.25); Glucose 85 mg/dL (74-106); Potassium 3.5 mmol/L (3.5-5.1); SODIUM 142 mmol/L (137-145)
--- NOTE | 2019-03-09 08:19 | PCM.DS ---
Discharge Summary Date of Admission: 03/03/19 09:57 Admitting Physician: JEAN MCCRARY Primary Care Provider: CHRISTINA VEE Allergies Allergies No Known Drug Allergies Allergy (Verified 03/03/19 06:24) Hospital Summary - Hospital Course Hospital Course: patient was admitted with worsening weakness, found to have early pneumonia. has improved with rocephin/zithromax x 7 days. going to [facility] today for rehab stay, possible IVIG infusion by his neurologist Dr Tapia in the near future. has advanced parkinsonism and difficulty with ambulation/unsteady with falls. - Vitals & Intake/Output Vital Signs: Vital Signs Temperature 97.6 F 03/09/19 07:09 Pulse Rate 68 03/09/19 07:09 Respiratory Rate 18 03/09/19 07:09 Blood Pressure 123/79 03/09/19 07:09 O2 Sat by Pulse Oximetry 93 L 03/09/19 07:09 Intake & Output: Intake & Output 03/06/19 03/07/19 03/08/19 03/09/19 11:59 11:59 11:59 11:59 Intake Total 2260 1119 1070 680 Balance 2260 1119 1070 680 Weight 109.1 kg 124.6 kg 124.2 kg - Lab Result Diagrams: 03/09/19 04:59 03/09/19 04:59 Lab Results-Last 24 Hrs: Lab Results-Last 24 Hours 03/09/19 03/09/19 Range/Units 04:59 04:59 WBC 7.5 (4.0-10.5) K/mm3 RBC 5.30 (4.1-5.6) M/mm3 Hgb 16.9 (12.5-18.0) gm/dl Hct 50.8 H (42-50) % MCV 95.8 (78-100) fl MCH 31.9 (26-32) pg MCHC 33.3 (32-36) g/dl RDW 13.3 (11.5-14.0) % Plt Count 195 (150-450) K/mm3 MPV 8.6 (6-9.5) fl Sodium 142 (137-145) mmol/L Potassium 3.5 (3.5-5.1) mmol/L Chloride 101 (98-107) mmol/L Carbon Dioxide 33 H (22-30) mmol/L Anion Gap 11.3 (5-15) MEQ/L BUN 12 (9-20) mg/dL Creatinine 0.54 L (0.66-1.25) mg/dL Estimated GFR > 60.0 ML/MIN Glucose 85 (74-106) mg/dL Calcium 9.1 (8.4-10.2) mg/dL Micro Results-Entire Visit: Microbiology 03/03/19 07:16 Blood Culture Gram Stain - Final Blood Not Reportable Blood Culture - Final NO GROWTH 03/03/19 07:12 Blood Culture Gram Stain - Final Blood Not Reportable Blood Culture - Final NO GROWTH - Procedures and Test Procedures and Tests throughout Hospitalization: Therapy Orders & Screens 03/03/19 10:02 Oxygen Nasal Cannula 2 lpm Comment: 03/03/19 11:38 Respiratory Therapy Assessment DAILY Comment: Diagnosis: WEAKNESS 03/03/19 12:46 EKG ROUTINE Comment: Diagnosis: WEAKNESS 03/03/19 13:00 Incentive Spirometry TID Comment: Diagnosis: WEAKNESS 03/04/19 09:51 PT Eval & Treat ( Order) ROUTINE Reason for Eval:: weakness, parkinsons Diagnosis: WEAKNESS 03/07/19 13:43 Flutter Therapy UD Comment: Diagnosis: WEAKNESS Discharge Exam General Appearance: no apparent distress, obese Neurologic Exam: alert, oriented x 3, slurred speech (slow and slurred), other ( diffusely slowed movements and muscle weakness present), No motor deficits Respiratory Exam: normal breath sounds, lungs clear, No respiratory distress Cardiovascular Exam: regular rate/rhythm, normal heart sounds Gastrointestinal/Abdomen Exam: soft, No tenderness, No mass Extremity Exam: normal inspection, normal range of motion Skin Exam: normal color, warm, dry Final Diagnosis/Problem List - Final Discharge Diagnosis/Problem (1) Pneumonia Current Visit: Yes Status: Acute Assessment & Plan: completed 7 days of IV therapy, no further abx required on discharge Code(s): J18.9 - PNEUMONIA, UNSPECIFIED ORGANISM (2) Weakness Current Visit: Yes Status: Acute Assessment & Plan: PT/OT/ST to evaluate at [place] Code(s): R53.1 - WEAKNESS (3) Parkinson disease Current Visit: Yes Status: Acute Code(s): G20 - PARKINSON'S DISEASE - Discharge Disposition: Skilled Care @ [facility] Condition: Fair Prescriptions: New Docusate Sodium 100 mg [Colace 100 MG] 100 mg PO BIDPRN PRN #60 capsule PRN Reason: Constipation Potassium Chloride 10 Meq Tab* [Klor Con 10 MEQ] 10 meq PO DAILY #30 tab Polyethylene Glycol 3350 17 gm [Miralax Powder 17GM PACKET] 17 gm PO DAILY PRN PRN #30 packet PRN Reason: Constipation Continue Pravastatin Sodium 40 mg PO DAILY Cyanocobalamin (Vitamin B-12) [Vitamin B12] 5,000 mcg PO DAILY Chlorthalidone 12.5 mg PO DAILY Loratadine 10 mg [Claritin 10 mg] 10 mg PO DAILY Guaifenesin [Mucinex] 600 mg PO BID Carbidopa/Levodopa [Sinemet 25-250 mg Tablet] 2 tab PO QID Metoprolol Succinate 100 mg [Toprol Xl 100 MG] 100 mg PO DAILY Tamsulosin HCl 0.4 mg PO HS Testosterone Cypionate 100 mg IM UD Mirabegron [Myrbetriq] 50 mg PO DAILY Aspirin 81 gm Chew [Baby Aspirin 81 mg Chew] 2 tab PO DAILY Discontinued Lisinopril 5 mg PO DAILY Follow up with: CHRISTINA VEE MD [Primary Care Provider] - 1 Week
[2019-03-09] MEDS: ROCEPHIN 1 Gm-D5w 50 ml Bag** 1 G/50 ML IVPB IV SCH (09:02)
[2019-03-09] MEDS: CLARITIN 10 MG PO SCH (09:09)
[2019-03-09] MEDS: Klor Con 10 MEQ PO SCH (09:09)
[2019-03-09] MEDS: ECOTRIN 81 MG PO SCH (09:09)
[2019-03-09] MEDS: Mucinex 600MG ER Tabs PO SCH ×2 (09:09→21:05)
[2019-03-09] MEDS: PATIENT OWN MEDICATION PO SCH ×3 (09:10→09:11)
[2019-03-09] MEDS: ZOCOR 20MG PO SCH (09:12)
[2019-03-09] MEDS: Toprol Xl 100 MG PO SCH (09:12)
[2019-03-09] MEDS: Zithromax 500 MG/ 250 ML NaCl Premix 500 MG/250 ML IVPB IV SCH (10:03)
[2019-03-09] MEDS: Flomax 0.4 MG PO SCH (21:05)
[2019-03-09] MEDS: BENADRYL 25 MG CAPSULE PO PRN (21:07)
[2019-03-09] MEDS: TYLENOL 325 MG PO PRN (21:07)
[2019-03-10] MEDS: Sinemet 25/250 MG PO SCH ×3 (04:24→14:48)
[2019-03-10] MEDS: Sodium Chloride 0.9% 10 ML FLUSH Syringe IV SCH (04:25)
--- NOTE | 2019-03-10 08:50 | PCM.DS ---
Discharge Summary Date of Admission: 03/03/19 09:57 Admitting Physician: JEAN MCCRARY Primary Care Provider: CHRISTINA VEE Allergies Allergies No Known Drug Allergies Allergy (Verified 03/03/19 06:24) Hospital Summary - Hospital Course Hospital Course: Pt is a 63 yo male pt of Dr. Vee' with Parkinson's, HTN, hyperlipidemia, BPH, CAD, and idiopathic peripheral neuropathy who was admitted through ER with extremitiy weakness, SOB, and increased sinus sx. Was found to have possible pna on the R. He was started on IV rocephin and zithromax and admitted for further treatment. He improved clinically over the next few days and it was decided that he would go to [facility] for further treatment and PT. Pt does complain of some MEMBRENO this morning, starts in the frontal area and radiates over the superior portion of his head. He generally takes Tylenol for this but hasn't yet this morning. His Parkinson's is apparently fairly severe and he received IV Ig treatments regularly. He did have hypokalemia here but it has resolved. On admission his WBC were 13.3 but now have normalized. Renal function remained normal during his stay. CT head on admission non acute (with chronic sinus findings). Pt was supposed to go to [facility] yesterday but due to some insurance issues that discharge has been delayed. He may go today if possible. - Vitals & Intake/Output Vital Signs: Vital Signs Temperature 98.3 F 03/10/19 06:51 Pulse Rate 69 03/10/19 07:00 Respiratory Rate 18 03/10/19 07:00 Blood Pressure 119/72 03/10/19 06:51 O2 Sat by Pulse Oximetry 94 L 03/10/19 07:00 Intake & Output: Intake & Output 03/07/19 03/08/19 03/09/19 03/10/19 11:59 11:59 11:59 11:59 Intake Total 1119 3042 547 2985 Balance 1119 2939 737 6480 Weight 124.6 kg 124.2 kg - Lab Result Diagrams: 03/09/19 04:59 03/09/19 04:59 Micro Results-Entire Visit: Microbiology 03/03/19 07:16 Blood Culture Gram Stain - Final Blood Not Reportable Blood Culture - Final NO GROWTH 03/03/19 07:12 Blood Culture Gram Stain - Final Blood Not Reportable Blood Culture - Final NO GROWTH - Procedures and Test Procedures and Tests throughout Hospitalization: Therapy Orders & Screens 03/03/19 10:02 Oxygen Nasal Cannula 2 lpm Comment: 03/03/19 11:38 Respiratory Therapy Assessment DAILY Comment: Diagnosis: WEAKNESS 03/03/19 12:46 EKG ROUTINE Comment: Diagnosis: WEAKNESS 03/03/19 13:00 Incentive Spirometry TID Comment: Diagnosis: WEAKNESS 03/04/19 09:51 PT Eval & Treat ( Order) ROUTINE Reason for Eval:: weakness, parkinsons Diagnosis: WEAKNESS 03/07/19 13:43 Flutter Therapy UD Comment: Diagnosis: WEAKNESS Discharge Exam General Appearance: no apparent distress, alert, obese Neurologic Exam: oriented x 3, cooperative, slurred speech, other (intermittent mild tremors diminished affect) Neck Exam: normal inspection Respiratory Exam: normal breath sounds, lungs clear, No crackles/rales, No rhonchi, No wheezing Cardiovascular Exam: regular rate/rhythm, normal heart sounds, No murmur Gastrointestinal/Abdomen Exam: soft, normal bowel sounds, No tenderness, No distention, No mass, No guarding, No rebound Back Exam: normal inspection, No rash Extremity Exam: pedal edema, swelling (2+ LE edema bilat) Skin Exam: normal color, warm, dry, No rash Final Diagnosis/Problem List - Final Discharge Diagnosis/Problem (1) Pneumonia Current Visit: Yes Status: Acute Assessment & Plan: much improved. Will stop the IV zithromax today. Day #7 of zithromax and rocephin IV. Code(s): J18.9 - PNEUMONIA, UNSPECIFIED ORGANISM (2) Parkinson disease Current Visit: Yes Status: Chronic Code(s): G20 - PARKINSON'S DISEASE (3) Weakness Current Visit: Yes Status: Acute Assessment & Plan: acute on chronic. Code(s): R53.1 - WEAKNESS - Discharge Disposition: Skilled Care @ [facility] Condition: Fair Prescriptions: New Docusate Sodium 100 mg [Colace 100 MG] 100 mg PO BIDPRN PRN #60 capsule PRN Reason: Constipation Potassium Chloride 10 Meq Tab* [Klor Con 10 MEQ] 10 meq PO DAILY #30 tab Polyethylene Glycol 3350 17 gm [Miralax Powder 17GM PACKET] 17 gm PO DAILY PRN PRN #30 packet PRN Reason: Constipation Continue Pravastatin Sodium 40 mg PO DAILY Cyanocobalamin (Vitamin B-12) [Vitamin B12] 5,000 mcg PO DAILY Chlorthalidone 12.5 mg PO DAILY Loratadine 10 mg [Claritin 10 mg] 10 mg PO DAILY Guaifenesin [Mucinex] 600 mg PO BID Carbidopa/Levodopa [Sinemet 25-250 mg Tablet] 2 tab PO QID Metoprolol Succinate 100 mg [Toprol Xl 100 MG] 100 mg PO DAILY Tamsulosin HCl 0.4 mg PO HS Testosterone Cypionate 100 mg IM UD Mirabegron [Myrbetriq] 50 mg PO DAILY Aspirin 81 gm Chew [Baby Aspirin 81 mg Chew] 2 tab PO DAILY Discontinued Lisinopril 5 mg PO DAILY Additional Instructions: [facility] ORDERS: --REGULAR DIET --PT/OT EVAL AND TREAT --SEE ATTACHED MED LIST FOR CURRENT MED ORDERS Follow up with: CHRISTINA VEE MD [Primary Care Provider] - 1 Week
[2019-03-10] MEDS: ROCEPHIN 1 Gm-D5w 50 ml Bag** 1 G/50 ML IVPB IV SCH (09:27)
[2019-03-10] MEDS: CLARITIN 10 MG PO SCH (09:34)
[2019-03-10] MEDS: Mucinex 600MG ER Tabs PO SCH (09:35)
[2019-03-10] MEDS: Klor Con 10 MEQ PO SCH (09:35)
[2019-03-10] MEDS: ECOTRIN 81 MG PO SCH (09:35)
[2019-03-10] MEDS: PATIENT OWN MEDICATION PO SCH ×3 (09:36→09:37)
[2019-03-10] MEDS: Toprol Xl 100 MG PO SCH (09:38)
[2019-03-10] MEDS: ZOCOR 20MG PO SCH (09:38)
[2019-03-10 11:38] VITALS: BP 124/82; PULSE 74; O2SAT 95
== END 2019-03-10 15:07 ==
LOC: ED 06:21 → MED SURG 09:57
PROVIDERS: ADMIT Family Medicine; ATTEND Family Medicine
DX: J18.9 Pneumonia, unspecified organism (principal); R53.1 Weakness; G20 Parkinson's disease; J01.00 Acute maxillary sinusitis, unspecified; I10 Essential (primary) hypertension; E78.5 Hyperlipidemia, unspecified; N40.0 Benign prostatic hyperplasia without lower urinary tract symptoms; I25.10 Atherosclerotic heart disease of native coronary artery without angina pectoris; R51 Headache; E87.6 Hypokalemia; E78.00 Pure hypercholesterolemia, unspecified; J38.00 Paralysis of vocal cords and larynx, unspecified; Z79.899 Other long term (current) drug therapy
CPT/HCPCS: 36000; 36415; 70450; 71045; 80048; 80053; 83605; 83735; 84484; 85025; 85027; 87040; 87631; 87651; 93005; 93041; 93268; 94640; 94667; 94760; 96365; 97110; 97162; 97530; 99285; G0378; J0456; J0696; J7609; A9270-GY

== ENCOUNTER 2021-01-17 17:33 | Observation (INO) | payer MEDICARE ==
[2021-01-17] MEDS ORDERED: Sodium Chloride 0.9% 1000 ML 1,000 ML ONE (18:22)
[2021-01-17] MEDS ORDERED: Sodium Chloride 0.9% 1000 ML 1,000 ML IV SCH (18:30)
[2021-01-17 18:46] LABS: Absolute Neutrophil Ct (ANC) 6.39 (1.4-6.9); BASOPHIL % 0.2 % (0.0-0.4); Basophil (Absolute #) 0.02 (0-0.4); Eosinophil % 1.9 % (0.00-5.0); Eosinophil (Absolute #) 0.17 (0-0.5); Hemoglobin 16.2 gm/dl (12.5-18.0); Mean Cell Volume 98.6 fl (78-100); Mean Corpuscular Hgb Concent. 32.4 g/dl (32-36); Mean Platelet Volume 9.2 fl (7.5-11.0); Monocyte (Absolute #) 0.69 (0.0-1.3); Monocytes % 7.7 % (0.0-12.0); Neutrophil % 71.2 % (36.0-66.0); Platelet Count 228 K/mm3 (150-450); Red Blood Count 5.07 M/mm3 (4.1-5.6); Red Cell Distribution Width 13.4 % (11.5-14.0)
[2021-01-17 18:58] LABS: ALKALINE PHOSPHATASE 75 U/L (38-126); ANION GAP 12.6 MEQ/L (5-15); BLOOD UREA NITROGEN 21 mg/dL (9-20); CHLORIDE 100 mmol/L (98-107); Calcium 8.9 mg/dL (8.4-10.2); Carbon Dioxide 29 mmol/L (22-30); Creatinine 1 0.56 mg/dL (0.66-1.25); EST GLOMERULAR FILTRATION RATE > 60.0 ML/MIN; Glucose 103 mg/dL (74-106); MAGNESIUM 2.1 mg/dL (1.6-2.3); Potassium 4.1 mmol/L (3.5-5.1); SGOT/AST 22 U/L (17-59); SODIUM 137 mmol/L (137-145); Total Protein 6.8 g/dL (6.3-8.2)
[2021-01-17 19:02] LABS: SGPT/ALT < 4 U/L (0-50)
--- NOTE | 2021-01-17 19:53 | ERPHSYRPT ---
- History of Present Illness Time Seen by Provider: 01/17/21 17:45 Source: patient Exam Limitations: no limitations Patient Subjective Stated Complaint: Pt's states that pt has been weak and fatigued, decreased appetite and decreased drinking and night episodes which they think may be sundowners Triage Nursing Assessment: Pt brought to the ER by his , pt has parkinsons and MSA, pt is in an electric scooter, states that pressure runs low due to his parkinsons medicine, pulses normal, denies pain, noticed that his face is drooping on the left side and the skin under the neck sags on the left side, negative for any other NIHSS categories, doesn't appear to be in any distress Physician History: Patient is a 65-year-old male with a history of Parkinson's and multisystem atrophy presents to our ED for evaluation of generalized weakness and fatigue. Patient reports that patient has had a decreased appetite. He has not been eating as much. Patient states that patient appeared well last night. However upon awakening she observed what appeared to be some drooping of the left side of his face. She also noticed that the skin fold at the base of his neck is leaning towards the left. concerned that patient may have had a stroke. There is no slurred speech. Because of the multisystem atrophy patient has poor control of his vocal cords. states patient tends to aspirate. However no recent aspiration reported. No extremity numbness weakness or tingling trauma. No fever. Symptoms are mild to moderate in intensity. No specific worsening improving factors. voices no other complaints at this time. Patient provides little information towards this HPI. Timing/Duration: today Severity: moderate Modifying Factors: Improves With: nothing Associated Symptoms: loss of appetite, No nausea, No vomiting, No abdominal pain, No shortness of breath, No fever, No seizure Allergies/Adverse Reactions: No Known Drug Allergies Allergy (Verified 01/17/21 18:03) Home Medications: Pravastatin Sodium 40 mg PO DAILY 12/20/11 [History] Carbidopa/Levodopa [Sinemet 25-250 mg Tablet] 2 tab PO 5XD 08/23/18 [History] Cyanocobalamin (Vitamin B-12) [Vitamin B12] 5,000 mcg PO DAILY 08/23/18 [History] Guaifenesin [Mucinex] 600 mg PO BID 08/23/18 [History] Loratadine 10 mg [Claritin 10 mg] 10 mg PO DAILY 08/23/18 [History] Metoprolol Succinate 100 mg [Toprol Xl 100 MG] 25 mg PO DAILY 08/23/18 [History] Tamsulosin HCl 0.4 mg PO HS 08/23/18 [History] Testosterone Cypionate 100 mg IM UD 08/23/18 [History] Aspirin 81 gm Chew [Baby Aspirin 81 mg Chew] 2 tab PO DAILY 03/03/19 [History] Mirabegron [Myrbetriq] 50 mg PO DAILY 03/03/19 [History] Docusate Sodium 100 mg [Colace 100 MG] 240 mg PO DAILY 10/07/20 [History] Furosemide 40 mg [Lasix 40 MG] 40 mg PO BID 10/07/20 [History] Ipratropium Aripe[place] 1 spray NS BID 10/07/20 [History] Potassium Chloride 10 Meq Tab* [Klor Con 10 MEQ] 20 meq PO DAILY 10/07/20 [History] Spironolactone 25 mg [Aldactone 25 MG] 25 mg PO DAILY 10/07/20 [History] Pyridostigmine [place] 30 mg PO BID 01/17/21 [History] Hx Tetanus, Diphtheria Vaccination/Date Given: Yes Hx Influenza Vaccination/Date Given: Yes Hx Pneumococcal Vaccination/Date Given: No Travel Risk - International Travel Have you traveled outside of the country in past 3 weeks: No - Coronavirus Screening Are you exhibiting any of the following symptoms?: No Close contact with a COVID-19 positive Pt in past 14-21 Days: No - Vaccine Status Have you recieved a Covid-19 vaccination: Yes 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 - Vaccination Dates Date of 2cond Vaccination (if applicable): 09/14/2020 - Review of Systems Constitutional: No Symptoms, No Fever, No Chills Eyes: No Symptoms Ears, Nose, & Throat: No Symptoms Respiratory: No Symptoms, No Cough, No Dyspnea Cardiac: No Symptoms, No Chest Pain, No Edema, No Syncope Abdominal/Gastrointestinal: No Symptoms, No Abdominal Pain, No Nausea, No Vomiting, No Diarrhea Genitourinary Symptoms: No Symptoms, No Dysuria Musculoskeletal: No Symptoms, No Back Pain, No Neck Pain Skin: No Symptoms, No Rash Neurological: No Symptoms, No Dizziness, No Focal Weakness, No Sensory Changes Psychological: No Symptoms Endocrine: No Symptoms Hematologic/Lymphatic: No Symptoms Immunological/Allergic: No Symptoms All Other Systems: Reviewed and Negative - Past Medical History Pertinent Past Medical History: Yes Neurological History: Other ENT History: Other Cardiac History: Hypertension, Other Respiratory History: Bronchitis Endocrine Medical History: No Pertinent History Musculoskeletal History: No Pertinent History GI Medical History: Hernia History: No Pertinent History Psycho-Social History: No Pertinent History Male Reproductive Disorders: Prostate Problems Other Medical History: Parkinson Disease, hypoxia, atelectasis of B lungs, acute maxillarysinusitis, weakness, hypokalemia, heart stents x2 - Past Surgical History Past Surgical History: Yes Neuro Surgical History: No Pertinent History Cardiac: Angioplasty, Cardiac Stent Respiratory: No Pertinent History Gastrointestinal: Hernia Repair Genitourinary: Other Musculoskeletal: No Pertinent History Male Surgical History: Prostate Surgery Other Surgical History: sinus surgery, Cardiac stent,TURP, foot surgery - Social History Smoking Status: Former smoker Exposure to second hand smoke: No Drug Use: none Patient Lives Alone: No - Nursing Vital Signs Nursing Vital Signs: Initial Vital Signs Temperature 98.1 F 01/17/21 17:39 Pulse Rate 72 01/17/21 17:39 Respiratory Rate 28 H 01/17/21 17:39 Blood Pressure 88/53 01/17/21 17:39 O2 Sat by Pulse Oximetry 95 01/17/21 17:39 Pain Scale Pain Intensity 0 - Physical Exam General Appearance: no apparent distress, alert, other ( reports left-sided facial droop however it is not very apparent to me.. No obvious slurred speech. Patient appears to be at his baseline.) Eye Exam: PERRL/EOMI, eyes nml inspection Ears, Nose, Throat Exam: normal ENT inspection, TMs normal, pharynx normal, moist mucous membranes Neck Exam: normal inspection, non-tender, supple, full range of motion Respiratory Exam: normal breath sounds, lungs clear, No respiratory distress Cardiovascular Exam: regular rate/rhythm, normal heart sounds, normal peripheral pulses Gastrointestinal/Abdomen Exam: soft, normal bowel sounds, No tenderness, No mass Back Exam: normal inspection, normal range of motion, No CVA tenderness, No vertebral tenderness Extremity Exam: normal inspection, normal range of motion, pelvis stable Neurologic Exam: alert, oriented x 3, cooperative, normal mood/affect, sensation nml, No motor deficits Skin Exam: normal color, warm, dry, No rash Lymphatic Exam: No adenopathy SpO2 Interpretation: normal SpO2: 98 O2 Delivery: Room Air - Course Nursing assessment & vital signs reviewed: Yes EKG Interpreted by Me: RATE (74), Sinus Rhythm, Left Badger Deviation, NORMAL INTERVALS (Poor quality ECG due to tremor artifact. However no STEMI observed.) - CT Exams Head CT Interpretation: Tele-radiologist Report (Negative head compared to 03/03/2019.) Ordered Tests: Active Orders 24 hr Category Date Time Status Photo Engraver STAT Care 01/17/21 18:17 Active EKG-ER Only STAT Care 01/17/21 18:16 Active IV Insertion STAT Care 01/17/21 18:16 Active Pulse Oximetry (ED) STAT Care 01/17/21 18:16 Active HEAD WITHOUT CONTRAST [CT] Stat Exams 01/17/21 18:18 Taken CBC W DIFF Stat Lab 01/17/21 18:43 Completed CMP Stat Lab 01/17/21 18:43 Completed MAGNESIUM Stat Lab 01/17/21 18:43 Completed TROPONIN Q3H Lab 01/17/21 18:43 Completed TROPONIN Q3H Lab 01/17/21 21:20 Completed TROPONIN Q3H Lab 01/18/21 00:30 Ordered TROPONIN Q3H Lab 01/18/21 03:30 Ordered TROPONIN Q3H Lab 01/18/21 06:30 Ordered UA W/RFX UR CULTURE Stat Lab 01/17/21 21:43 Completed Transfer Order Routine Transfer 01/17/21 Ordered Medication Summary Generic Name Dose Route Start Last Admin Trade Name Bertrand PRN Reason Stop Dose Admin Sodium Chloride 1,000 mls @ 100 mls/hr 01/17/21 18:30 01/17/21 18:24 Sodium Chloride 0.9% 1000 Ml IV 02/16/21 18:29 100 mls/hr .Q10H EDENILSON Administration Lab/Rad Data: Laboratory Result Diagrams 01/17/21 18:43 01/17/21 18:43 Laboratory Results 01/17/21 01/17/21 01/17/21 Range/Units 21:43 21:20 20:53 WBC (4.0-10.5) K/mm3 RBC (4.1-5.6) M/mm3 Hgb (12.5-18.0) gm/dl Hct (42-50) % MCV (78-100) fl MCH (26-32) pg MCHC (32-36) g/dl RDW (11.5-14.0) % Plt Count (150-450) K/mm3 MPV (7.5-11.0) fl Gran % (36.0-66.0) % Eos # (Auto) (0-0.5) Absolute Lymphs (auto) (1.0-4.6) Absolute Monos (auto) (0.0-1.3) Lymphocytes % (24.0-44.0) % Monocytes % (0.0-12.0) % Eosinophils % (0.00-5.0) % Basophils % (0.0-0.4) % Absolute Granulocytes (1.4-6.9) Basophils # (0-0.4) Sodium (137-145) mmol/L Potassium (3.5-5.1) mmol/L Chloride (98-107) mmol/L Carbon Dioxide (22-30) mmol/L Anion Gap (5-15) MEQ/L BUN (9-20) mg/dL Creatinine (0.66-1.25) mg/dL Estimated GFR ML/MIN Glucose (74-106) mg/dL Calcium (8.4-10.2) mg/dL Magnesium (1.6-2.3) mg/dL Total Bilirubin (0.2-1.3) mg/dL AST (17-59) U/L ALT (0-50) U/L Alkaline Phosphatase (38-126) U/L Troponin I < 0.012 (0.000-0.034) ng/mL Serum Total Protein (6.3-8.2) g/dL Albumin (3.5-5.0) g/dL Urine Color YELLOW (YELLOW) Urine Appearance CLEAR (CLEAR) Urine pH 5.0 (5-6) Ur Specific Jal 1.019 (1.005-1.025) Urine Protein NEGATIVE (Negative) Urine Ketones SMALL (NEGATIVE) Urine Blood NEGATIVE (0-5) Johnathon/ul Urine Nitrite NEGATIVE (NEGATIVE) Urine Bilirubin NEGATIVE (NEGATIVE) Urine Urobilinogen 4 (0-1) mg/dL Ur Leukocyte Esterase NEGATIVE (NEGATIVE) Urine WBC (Auto) 0-2 (0-5) /HPF Urine RBC (Auto) NONE SEEN (0-2) /HPF U Hyaline Cast (Auto) 0-2 (0-2) /LPF U Epithel Cells (Auto) NONE (FEW) /HPF Urine Bacteria (Auto) NONE SEEN (NEGATIVE) /HPF Urine Mucus (Auto) SLIGHT (NEGATIVE) /HPF Urine Culture Reflexed NO (NO) Urine Glucose NEGATIVE (NEGATIVE) mg/dL SARS-CoV-2 (PCR) NEGATIVE (NEGATIVE) 01/17/21 01/17/21 01/17/21 Range/Units 18:43 18:43 18:43 WBC 9.0 (4.0-10.5) K/mm3 RBC 5.07 (4.1-5.6) M/mm3 Hgb 16.2 (12.5-18.0) gm/dl Hct 50.0 (42-50) % MCV 98.6 (78-100) fl MCH 32.0 (26-32) pg MCHC 32.4 (32-36) g/dl RDW 13.4 (11.5-14.0) % Plt Count 228 (150-450) K/mm3 MPV 9.2 (7.5-11.0) fl Gran % 71.2 H (36.0-66.0) % Eos # (Auto) 0.17 (0-0.5) Absolute Lymphs (auto) 1.70 (1.0-4.6) Absolute Monos (auto) 0.69 (0.0-1.3) Lymphocytes % 19.0 L (24.0-44.0) % Monocytes % 7.7 (0.0-12.0) % Eosinophils % 1.9 (0.00-5.0) % Basophils % 0.2 (0.0-0.4) % Absolute Granulocytes 6.39 (1.4-6.9) Basophils # 0.02 (0-0.4) Sodium 137 (137-145) mmol/L Potassium 4.1 (3.5-5.1) mmol/L Chloride 100 (98-107) mmol/L Carbon Dioxide 29 (22-30) mmol/L Anion Gap 12.6 (5-15) MEQ/L BUN 21 H (9-20) mg/dL Creatinine 0.56 L (0.66-1.25) mg/dL Estimated GFR > 60.0 ML/MIN Glucose 103 (74-106) mg/dL Calcium 8.9 (8.4-10.2) mg/dL Magnesium 2.1 (1.6-2.3) mg/dL Total Bilirubin 0.60 (0.2-1.3) mg/dL AST 22 (17-59) U/L ALT < 4 (0-50) U/L Alkaline Phosphatase 75 (38-126) U/L Troponin I < 0.012 (0.000-0.034) ng/mL Serum Total Protein 6.8 (6.3-8.2) g/dL Albumin 4.0 (3.5-5.0) g/dL Urine Color (YELLOW) Urine Appearance (CLEAR) Urine pH (5-6) Ur Specific Jal (1.005-1.025) Urine Protein (Negative) Urine Ketones (NEGATIVE) Urine Blood (0-5) Johnathon/ul Urine Nitrite (NEGATIVE) Urine Bilirubin (NEGATIVE) Urine Urobilinogen (0-1) mg/dL Ur Leukocyte Esterase (NEGATIVE) Urine WBC (Auto) (0-5) /HPF Urine RBC (Auto) (0-2) /HPF U Hyaline Cast (Auto) (0-2) /LPF U Epithel Cells (Auto) (FEW) /HPF Urine Bacteria (Auto) (NEGATIVE) /HPF Urine Mucus (Auto) (NEGATIVE) /HPF Urine Culture Reflexed (NO) Urine Glucose (NEGATIVE) mg/dL SARS-CoV-2 (PCR) (NEGATIVE) - Progress Progress: improved Progress Note: T head negative for acute intracranial pathology. Teleneuro in progress. Dr. Cee teleneurologist advises hospitalization for MRI/MRA to rule out stroke. 01/17/21 20:06 01/17/21 20:[address] Hinton covering Dr. Vee who accepts admission to observation. Covid test pending Covid test negative. Patient will be admitted to the floor. Dr. Hinton the accepting physician. Plan of care discussed with patient. He agrees to admission to [facility] for further evaluation and treatment. 01/17/21 20:38 01/17/21 22:[address] DrJody: Lm Counseled pt/family regarding: lab results, diagnosis, rad results - Departure Departure Disposition: Observation Clinical Impression: Generalized weakness, Fatigue Condition: Stable Critical Care Time: No Referrals: CHRISTINA VEE MD [Primary Care Provider] -
[2021-01-17 22:01] LABS: Appearance CLEAR (CLEAR); Bacteria NONE SEEN /HPF (NEGATIVE); Bilirubin NEGATIVE (NEGATIVE); Blood NEGATIVE Ery/ul (0-5); Glucose NEGATIVE (NEGATIVE); Hyaline Casts 0-2 /LPF (0-2); Ketones SMALL (NEGATIVE); Leukocyte Esterase NEGATIVE (NEGATIVE); Mucus SLIGHT /HPF (NEGATIVE); Nitrite NEGATIVE (NEGATIVE); Protein,Urine Dip NEGATIVE (Negative); RBC NONE SEEN /HPF (0-2); Specific Gravity 1.019 (1.005-1.025); Urobilinogen 4 mg/dL (0-1); WBC 0-2 /HPF (0-5)
[2021-01-17] MEDS ORDERED: Zofran 4 MG/2 ML VIAL IV PRN (22:47)
[2021-01-17] MEDS ORDERED: MORPHINE SULFATE 2 MG INJ IV PRN (22:47)
[2021-01-18] MEDS: Sodium Chloride 0.9% 1000 ML 1,000 ML IV SCH ×3 (03:12→21:41)
[2021-01-18 04:52] LABS: Absolute Neutrophil Ct (ANC) 6.67 (1.4-6.9); BASOPHIL % 0.2 % (0.0-0.4); Basophil (Absolute #) 0.02 (0-0.4); Eosinophil % 1.7 % (0.00-5.0); Eosinophil (Absolute #) 0.16 (0-0.5); Hemoglobin 15.6 gm/dl (12.5-18.0); Lymphocyte (Absolute #) 1.67 (1.0-4.6); Lymphocytes % 18.1 % (24.0-44.0); Mean Cell Volume 98.6 fl (78-100); Mean Corpuscular Hgb Concent. 32.5 g/dl (32-36); Mean Platelet Volume 8.7 fl (7.5-11.0); Monocytes % 7.6 % (0.0-12.0); Neutrophil % 72.4 % (36.0-66.0); Platelet Count 204 K/mm3 (150-450); Red Blood Count 4.87 M/mm3 (4.1-5.6); Red Cell Distribution Width 13.3 % (11.5-14.0); White Blood Count 9.2 K/mm3 (4.0-10.5)
[2021-01-18 05:07] LABS: ALBUMIN 3.6 g/dL (3.5-5.0); ALKALINE PHOSPHATASE 69 U/L (38-126); ANION GAP 11.7 MEQ/L (5-15); BLOOD UREA NITROGEN 16 mg/dL (9-20); CHLORIDE 102 mmol/L (98-107); Calcium 8.5 mg/dL (8.4-10.2); Carbon Dioxide 27 mmol/L (22-30); EST GLOMERULAR FILTRATION RATE > 60.0 ML/MIN; Glucose 90 mg/dL (74-106); Potassium 3.8 mmol/L (3.5-5.1); SGOT/AST 20 U/L (17-59); SODIUM 137 mmol/L (137-145); Total Protein 6.2 g/dL (6.3-8.2)
[2021-01-18 05:11] LABS: SGPT/ALT < 4 U/L (0-50)
--- NOTE | 2021-01-18 08:41 | XRAY ---
Indication: Stroke 3-4 days ago. Intracranial hemorrhage. History Parkinson's. Multiple contiguous axial images obtained through the head without contrast. Comparison: March 03, 2019. There remains age-appropriate global atrophy. No acute intracranial hemorrhage, abnormal extra-axial fluid collection, or mass effect. Fourth ventricle is midline without hydrocephalus. Acevedo-white matter differentiation preserved. Bony calvarium intact. Again mild mucosal thickening left maxillary sinus. Remaining visualized paranasal sinuses and mastoid air cells are clear. Impression: 1. No new or acute intracranial abnormalities. Follow-up CT or MRI brain may yield further information if there remains clinical concern. 2. Again incidental left maxillary sinus disease.
--- NOTE | 2021-01-18 09:49 | PCM.HP ---
History of Present Illness - Chief Complaint Chief Complaint: weakness History of Present Illness: is a 65 year old male with advanced Parkinson disease and multisystem atrophy, he was brought to the ER due to a decrease in energy, he also has had some agitation and there was some concern for facial drooping. He has not walked in over a year and is followed by neurology but has had a general decline, he was seen in ER and felt to have worsening of his chronic multisystem atrophy but recommended admission for MRI/MRA head to r/o acute cva. he is unsure if he is still weak, he is not a good historian and there is no family available at the bedside during exam this morning. - Review of Systems Constitutional: Weakness Eyes: No Symptoms Cardiac: No Symptoms Abdominal/Gastrointestinal: No Abdominal Pain, No Nausea, No Vomiting, No Diarrhea Genitourinary Symptoms: No Dysuria Skin: No Rash All Other Systems: Reviewed and Negative Medications & Allergies Home Medications: Home Medication List Pravastatin Sodium 40 mg PO DAILY 12/20/11 [History Confirmed 01/17/21] Carbidopa/Levodopa [Sinemet 25-250 mg Tablet] 2.5 tab PO 5XD 08/23/18 [History Confirmed 01/17/21] Cyanocobalamin (Vitamin B-12) [Vitamin B12] 5,000 mcg PO DAILY 08/23/18 [History Confirmed 01/17/21] Guaifenesin [Mucinex] 600 mg PO BID 08/23/18 [History Confirmed 01/17/21] Loratadine 10 mg [Claritin 10 mg] 10 mg PO DAILY 08/23/18 [History Confirmed 01/17/21] Metoprolol Succinate 100 mg [Toprol Xl 100 MG] 25 mg PO DAILY 08/23/18 [History Confirmed 01/17/21] Tamsulosin HCl 0.4 mg PO HS 08/23/18 [History Confirmed 01/17/21] Testosterone Cypionate 100 mg IM UD 08/23/18 [History Confirmed 01/17/21] Aspirin 81 gm Chew [Baby Aspirin 81 mg Chew] 2 tab PO DAILY 03/03/19 [History Confirmed 01/17/21] Mirabegron [Myrbetriq] 50 mg PO DAILY 03/03/19 [History Confirmed 01/17/21] Polyethylene Glycol 3350 17 gm [Miralax Powder 17GM PACKET] 17 gm PO DAILY PRN PRN #30 packet 03/09/19 [Rx Confirmed 01/17/21] Docusate Sodium 100 mg [Colace 100 MG] 240 mg PO DAILY 10/07/20 [History Confirmed 01/17/21] Furosemide 40 mg [Lasix 40 MG] 40 mg PO BID 10/07/20 [History Confirmed 01/17/21] Ipratropium Brigantine 1 spray NS BID 10/07/20 [History Confirmed 01/17/21] Potassium Chloride 10 Meq Tab* [Klor Con 10 MEQ] 20 meq PO DAILY 10/07/20 [History Confirmed 01/17/21] Spironolactone 25 mg [Aldactone 25 MG] 25 mg PO DAILY 10/07/20 [History Confirmed 01/17/21] Pyridostigmine Brigantine 30 mg PO BID 01/17/21 [History Confirmed 01/17/21] Allergies/Adverse Reactions: Allergies Allergy/AdvReac Type Severity Reaction Status Date / Time No Known Drug Allergies Allergy Verified 01/17/21 18:03 - Past Medical History Past Medical History: Yes Neurological History: Other ENT History: No Pertinent History Cardiac History: No Pertinent History Respiratory History: COPD Endocrine Medical History: No Pertinent History Musculoskelatal History: No Pertinent History GI Medical History: Hernia History: No Pertinent History Pyscho-Social History: No Pertinent History Male Reproductive Disorders: Prostate Problems Comment: Parkinson Disease, hypoxia, atelectasis of B lungs, acute maxillarysinusitis, weakness, hypokalemia, heart stents x2 - Past Surgical History Past Surgical History: Yes Neuro Surgical History: No Pertinent History Cardiac History: Angioplasty, Cardiac Stent Respiratory Surgery: No Pertinent History GI Surgical History: Hernia Repair Genitourinary Surgical Hx: Other Musculskeletal Surgical Hx: No Pertinent History Male Surgical History: Prostate Surgery Other Surgical History: sinus surgery, Cardiac stent,TURP, foot surgery - Social History Smoking Status: Former smoker Exposure to second hand smoke: No Alcohol: None Drug Use: none - Physical Exam Vital Signs: Vital Signs - 24 hr Temp Pulse Resp BP Pulse Ox 01/18/21 07:04 97.9 F 86 16 135/78 94 L 01/18/21 04:00 98.2 F 83 22 137/86 93 L 01/17/21 23:23 98.0 F 87 16 109/67 94 L 01/17/21 23:12 94 L 01/17/21 22:43 98 01/17/21 22:29 87 28 H 133/87 95 01/17/21 21:22 88 24 114/76 01/17/21 20:05 81 20 132/85 98 01/17/21 19:00 81 18 120/74 98 01/17/21 18:21 95 01/17/21 18:00 74 20 84/56 95 01/17/21 17:39 98.1 F 72 28 H 88/53 95 General Appearance: no apparent distress, obese, other (masked facies, slow hypokinetic speech) Neurologic Exam: alert, cooperative, depressed mood/affect, No agitation, No facial droop Neck Exam: normal inspection, non-tender, supple, full range of motion Respiratory Exam: normal breath sounds, lungs clear, No respiratory distress Cardiovascular Exam: regular rate/rhythm, normal heart sounds, normal peripheral pulses Gastrointestinal/Abdomen Exam: soft, normal bowel sounds, No tenderness, No mass Extremity Exam: normal inspection, normal range of motion, pelvis stable Skin Exam: normal color, warm, dry, No rash Wound Assessment: Skin/Wound Assessment Wound/Incision Assessment Start: 01/17/21 23:21 Text: Status: Active Freq: Protocol: Document 01/17/21 23:21 BS (Rec: 01/17/21 23:54 BS [id number]) Wound Photo Photo Taken No Results - Labs Lab/Micro Results: Lab Results-Last 24 Hours 01/17/21 01/17/21 01/17/21 Range/Units 18:43 18:43 18:43 WBC 9.0 (4.0-10.5) K/mm3 RBC 5.07 (4.1-5.6) M/mm3 Hgb 16.2 (12.5-18.0) gm/dl Hct 50.0 (42-50) % MCV 98.6 (78-100) fl MCH 32.0 (26-32) pg MCHC 32.4 (32-36) g/dl RDW 13.4 (11.5-14.0) % Plt Count 228 (150-450) K/mm3 MPV 9.2 (7.5-11.0) fl Gran % 71.2 H (36.0-66.0) % Eos # (Auto) 0.17 (0-0.5) Absolute Lymphs (auto) 1.70 (1.0-4.6) Absolute Monos (auto) 0.69 (0.0-1.3) Lymphocytes % 19.0 L (24.0-44.0) % Monocytes % 7.7 (0.0-12.0) % Eosinophils % 1.9 (0.00-5.0) % Basophils % 0.2 (0.0-0.4) % Absolute Granulocytes 6.39 (1.4-6.9) Basophils # 0.02 (0-0.4) Sodium 137 (137-145) mmol/L Potassium 4.1 (3.5-5.1) mmol/L Chloride 100 (98-107) mmol/L Carbon Dioxide 29 (22-30) mmol/L Anion Gap 12.6 (5-15) MEQ/L BUN 21 H (9-20) mg/dL Creatinine 0.56 L (0.66-1.25) mg/dL Estimated GFR > 60.0 ML/MIN Glucose 103 (74-106) mg/dL POC Glucometer (74 to 106) mg/dL Calcium 8.9 (8.4-10.2) mg/dL Magnesium 2.1 (1.6-2.3) mg/dL Total Bilirubin 0.60 (0.2-1.3) mg/dL AST 22 (17-59) U/L ALT < 4 (0-50) U/L Alkaline Phosphatase 75 (38-126) U/L Troponin I < 0.012 (0.000-0.034) ng/mL Serum Total Protein 6.8 (6.3-8.2) g/dL Albumin 4.0 (3.5-5.0) g/dL Urine Color (YELLOW) Urine Appearance (CLEAR) Urine pH (5-6) Ur Specific Mccoll (1.005-1.025) Urine Protein (Negative) Urine Ketones (NEGATIVE) Urine Blood (0-5) Johnathon/ul Urine Nitrite (NEGATIVE) Urine Bilirubin (NEGATIVE) Urine Urobilinogen (0-1) mg/dL Ur Leukocyte Esterase (NEGATIVE) Urine WBC (Auto) (0-5) /HPF Urine RBC (Auto) (0-2) /HPF U Hyaline Cast (Auto) (0-2) /LPF U Epithel Cells (Auto) (FEW) /HPF Urine Bacteria (Auto) (NEGATIVE) /HPF Urine Mucus (Auto) (NEGATIVE) /HPF Urine Culture Reflexed (NO) Urine Glucose (NEGATIVE) mg/dL SARS-CoV-2 (PCR) (NEGATIVE) 01/17/21 01/17/21 01/17/21 Range/Units 20:53 21:20 21:43 WBC (4.0-10.5) K/mm3 RBC (4.1-5.6) M/mm3 Hgb (12.5-18.0) gm/dl Hct (42-50) % MCV (78-100) fl MCH (26-32) pg MCHC (32-36) g/dl RDW (11.5-14.0) % Plt Count (150-450) K/mm3 MPV (7.5-11.0) fl Gran % (36.0-66.0) % Eos # (Auto) (0-0.5) Absolute Lymphs (auto) (1.0-4.6) Absolute Monos (auto) (0.0-1.3) Lymphocytes % (24.0-44.0) % Monocytes % (0.0-12.0) % Eosinophils % (0.00-5.0) % Basophils % (0.0-0.4) % Absolute Granulocytes (1.4-6.9) Basophils # (0-0.4) Sodium (137-145) mmol/L Potassium (3.5-5.1) mmol/L Chloride (98-107) mmol/L Carbon Dioxide (22-30) mmol/L Anion Gap (5-15) MEQ/L BUN (9-20) mg/dL Creatinine (0.66-1.25) mg/dL Estimated GFR ML/MIN Glucose (74-106) mg/dL POC Glucometer (74 to 106) mg/dL Calcium (8.4-10.2) mg/dL Magnesium (1.6-2.3) mg/dL Total Bilirubin (0.2-1.3) mg/dL AST (17-59) U/L ALT (0-50) U/L Alkaline Phosphatase (38-126) U/L Troponin I < 0.012 (0.000-0.034) ng/mL Serum Total Protein (6.3-8.2) g/dL Albumin (3.5-5.0) g/dL Urine Color YELLOW (YELLOW) Urine Appearance CLEAR (CLEAR) Urine pH 5.0 (5-6) Ur Specific Mccoll 1.019 (1.005-1.025) Urine Protein NEGATIVE (Negative) Urine Ketones SMALL (NEGATIVE) Urine Blood NEGATIVE (0-5) Johnathon/ul Urine Nitrite NEGATIVE (NEGATIVE) Urine Bilirubin NEGATIVE (NEGATIVE) Urine Urobilinogen 4 (0-1) mg/dL Ur Leukocyte Esterase NEGATIVE (NEGATIVE) Urine WBC (Auto) 0-2 (0-5) /HPF Urine RBC (Auto) NONE SEEN (0-2) /HPF U Hyaline Cast (Auto) 0-2 (0-2) /LPF U Epithel Cells (Auto) NONE (FEW) /HPF Urine Bacteria (Auto) NONE SEEN (NEGATIVE) /HPF Urine Mucus (Auto) SLIGHT (NEGATIVE) /HPF Urine Culture Reflexed NO (NO) Urine Glucose NEGATIVE (NEGATIVE) mg/dL SARS-CoV-2 (PCR) NEGATIVE (NEGATIVE) 01/18/21 01/18/21 01/18/21 Range/Units 00:39 04:48 04:48 WBC 9.2 (4.0-10.5) K/mm3 RBC 4.87 (4.1-5.6) M/mm3 Hgb 15.6 (12.5-18.0) gm/dl Hct 48.0 (42-50) % MCV 98.6 (78-100) fl MCH 32.0 (26-32) pg MCHC 32.5 (32-36) g/dl RDW 13.3 (11.5-14.0) % Plt Count 204 (150-450) K/mm3 MPV 8.7 (7.5-11.0) fl Gran % 72.4 H (36.0-66.0) % Eos # (Auto) 0.16 (0-0.5) Absolute Lymphs (auto) 1.67 (1.0-4.6) Absolute Monos (auto) 0.70 (0.0-1.3) Lymphocytes % 18.1 L (24.0-44.0) % Monocytes % 7.6 (0.0-12.0) % Eosinophils % 1.7 (0.00-5.0) % Basophils % 0.2 (0.0-0.4) % Absolute Granulocytes 6.67 (1.4-6.9) Basophils # 0.02 (0-0.4) Sodium (137-145) mmol/L Potassium (3.5-5.1) mmol/L Chloride (98-107) mmol/L Carbon Dioxide (22-30) mmol/L Anion Gap (5-15) MEQ/L BUN (9-20) mg/dL Creatinine (0.66-1.25) mg/dL Estimated GFR ML/MIN Glucose (74-106) mg/dL POC Glucometer (74 to 106) mg/dL Calcium (8.4-10.2) mg/dL Magnesium (1.6-2.3) mg/dL Total Bilirubin (0.2-1.3) mg/dL AST (17-59) U/L ALT (0-50) U/L Alkaline Phosphatase (38-126) U/L Troponin I < 0.012 < 0.012 (0.000-0.034) ng/mL Serum Total Protein (6.3-8.2) g/dL Albumin (3.5-5.0) g/dL Urine Color (YELLOW) Urine Appearance (CLEAR) Urine pH (5-6) Ur Specific Mccoll (1.005-1.025) Urine Protein (Negative) Urine Ketones (NEGATIVE) Urine Blood (0-5) Johnathon/ul Urine Nitrite (NEGATIVE) Urine Bilirubin (NEGATIVE) Urine Urobilinogen (0-1) mg/dL Ur Leukocyte Esterase (NEGATIVE) Urine WBC (Auto) (0-5) /HPF Urine RBC (Auto) (0-2) /HPF U Hyaline Cast (Auto) (0-2) /LPF U Epithel Cells (Auto) (FEW) /HPF Urine Bacteria (Auto) (NEGATIVE) /HPF Urine Mucus (Auto) (NEGATIVE) /HPF Urine Culture Reflexed (NO) Urine Glucose (NEGATIVE) mg/dL SARS-CoV-2 (PCR) (NEGATIVE) 01/18/21 01/18/21 Range/Units 04:48 07:32 WBC (4.0-10.5) K/mm3 RBC (4.1-5.6) M/mm3 Hgb (12.5-18.0) gm/dl Hct (42-50) % MCV (78-100) fl MCH (26-32) pg MCHC (32-36) g/dl RDW (11.5-14.0) % Plt Count (150-450) K/mm3 MPV (7.5-11.0) fl Gran % (36.0-66.0) % Eos # (Auto) (0-0.5) Absolute Lymphs (auto) (1.0-4.6) Absolute Monos (auto) (0.0-1.3) Lymphocytes % (24.0-44.0) % Monocytes % (0.0-12.0) % Eosinophils % (0.00-5.0) % Basophils % (0.0-0.4) % Absolute Granulocytes (1.4-6.9) Basophils # (0-0.4) Sodium 137 (137-145) mmol/L Potassium 3.8 (3.5-5.1) mmol/L Chloride 102 (98-107) mmol/L Carbon Dioxide 27 (22-30) mmol/L Anion Gap 11.7 (5-15) MEQ/L BUN 16 (9-20) mg/dL Creatinine 0.50 L (0.66-1.25) mg/dL Estimated GFR > 60.0 ML/MIN Glucose 90 (74-106) mg/dL POC Glucometer 86 (74 to 106) mg/dL Calcium 8.5 (8.4-10.2) mg/dL Magnesium (1.6-2.3) mg/dL Total Bilirubin 0.70 (0.2-1.3) mg/dL AST 20 (17-59) U/L ALT < 4 (0-50) U/L Alkaline Phosphatase 69 (38-126) U/L Troponin I (0.000-0.034) ng/mL Serum Total Protein 6.2 L (6.3-8.2) g/dL Albumin 3.6 (3.5-5.0) g/dL Urine Color (YELLOW) Urine Appearance (CLEAR) Urine pH (5-6) Ur Specific Mccoll (1.005-1.025) Urine Protein (Negative) Urine Ketones (NEGATIVE) Urine Blood (0-5) Johnathon/ul Urine Nitrite (NEGATIVE) Urine Bilirubin (NEGATIVE) Urine Urobilinogen (0-1) mg/dL Ur Leukocyte Esterase (NEGATIVE) Urine WBC (Auto) (0-5) /HPF Urine RBC (Auto) (0-2) /HPF U Hyaline Cast (Auto) (0-2) /LPF U Epithel Cells (Auto) (FEW) /HPF Urine Bacteria (Auto) (NEGATIVE) /HPF Urine Mucus (Auto) (NEGATIVE) /HPF Urine Culture Reflexed (NO) Urine Glucose (NEGATIVE) mg/dL SARS-CoV-2 (PCR) (NEGATIVE) - Radiology Impressions Radiology Exams & Impressions: Radiology Procedures Category Date Time Status HEAD WITHOUT CONTRAST [CT] Stat Exams 01/17/21 18:18 Completed MRA BRAIN WITHOUT CONTRAST [MRI] Routine Exams 01/18/21 08:14 Ordered MRA NECK WITHOUT CONTRAST [MRI] Routine Exams 01/18/21 08:14 Stop Req MRI BRAIN W/O CONTRAST [MRI] Routine Exams 01/18/21 08:14 Ordered Assessment/Plan (1) Weakness Current Visit: Yes Status: Acute Assessment & Plan: no obvious focal deficits on my exam, patient is normotensive, will continue aspirin and statin therapy at this time, await MRI/MRA brain. if imaging is negative will need to consider worsening chronic condition as far as disposition home vs rehab etc Code(s): R53.1 - WEAKNESS (2) Multiple system atrophy with bradykinesia Current Visit: Yes Status: Acute Code(s): G23.8 - OTHER SPECIFIED DEGENERATIVE DISEASES OF BASAL GANGLIA (3) Parkinson disease Current Visit: No Status: Chronic Code(s): G20 - PARKINSON'S DISEASE
[2021-01-18] MEDS ORDERED: Miralax Powder 17GM PACKET PO PRN (10:06)
[2021-01-18] MEDS ORDERED: Colace 100 MG PO SCH ×2 (10:30→18:00)
[2021-01-18] MEDS ORDERED: MEDICATION INTERVENTION MC SCH (10:30)
[2021-01-18] MEDS ORDERED: ECOTRIN 81 MG PO SCH (10:30)
[2021-01-18] MEDS: ECOTRIN 81 MG PO SCH (10:35)
[2021-01-18] MEDS: Toprol-Xl 25MG Tablets PO SCH (10:36)
[2021-01-18] MEDS: Aldactone 25 MG PO SCH (10:36)
[2021-01-18] MEDS: ZOCOR 20MG PO SCH (10:36)
[2021-01-18] MEDS: Klor Con 10 MEQ PO SCH (10:36)
[2021-01-18] MEDS: MYRBETRIQ PO SCH (10:37)
[2021-01-18] MEDS: Sinemet 25/250 MG PO SCH ×4 (10:37→21:27)
[2021-01-18] MEDS: Lasix 40 MG PO SCH ×2 (10:41→13:35)
[2021-01-18] MEDS ORDERED: TYLENOL EXTRA STRENGTH 500 MG PO PRN (13:42)
--- NOTE | 2021-01-18 13:56 | XRAY ---
Indication: Stroke. History of Parkinson's disease. Sagittal, coronal, and axial MRI brain performed without contrast using T1, T2, FLAIR, diffusion, and ADC sequences. Comparison: None There is global atrophy within normal limits for patient's age. No acute intracranial hemorrhage, abnormal extra-axial fluid collection, or mass effect. Diffusion images are negative for restricted signal. Fourth ventricle is midline without hydrocephalus. 7/8 cranial nerve complex bilaterally symmetric. Normal flow void signal within the major intracerebral circulation. Normal appearing craniocervical junction and sella turcica. Mild mucosal thickening left maxillary sinus. Remaining paranasal sinuses are clear. Impression: 1. Normal aging brain. 2. No acute intracranial abnormalities or evidence for evolving large vessel territorial stroke. 3. Incidental left maxillary sinus disease.
--- NOTE | 2021-01-18 14:00 | XRAY ---
Indication: Stroke. History of Parkinson's disease. Multi-slab 3-D [id number] MRA [place] performed. Comparison: None Distal internal carotid arteries are bilaterally symmetric without critical stenosis, obstruction, or AV malformation. Normal carotid terminus with normal branching A1 and M1 segments bilaterally. Anatomic variant for origin left posterior cerebral artery. More distal anterior cerebral and middle cerebral arteries are normal in MRA appearance bilaterally. Basilar artery is normal in course and caliber. Normal MRA appearance to the remaining right posterior cerebral and left/right superior cerebellar arteries. Impression: Anatomic variant origin left posterior cerebral artery. Remaining MRA [place] is negative.
[2021-01-18] MEDS ORDERED: PYRIDOSTIGMINE BROMIDE 30 MG PO SCH (22:00)
[2021-01-18] MEDS ORDERED: Flomax 0.4 MG PO SCH (22:00)
[2021-01-19] MEDS: Sodium Chloride 0.9% 1000 ML 1,000 ML IV SCH ×2 (01:26→14:06)
[2021-01-19] MEDS: Sinemet 25/250 MG PO SCH ×3 (05:35→12:26)
[2021-01-19] MEDS: Lasix 40 MG PO SCH ×2 (07:51→12:26)
--- NOTE | 2021-01-19 07:59 | PCM.DS ---
Discharge Summary Date of Admission: 01/17/21 22:45 Admitting Physician: MANGO GARCIA DO Primary Care Provider: CHRISTINA VEE Allergies Allergies No Known Drug Allergies Allergy (Verified 01/17/21 18:03) Hospital Summary - Hospital Course Hospital Course: patient was admitted with worsening weakness, has advanced parkinsonism with multisystem atrophy. there was concern for cva due to facial droop and sudden change, MRI is negative and symptoms are felt to be worsening of his chronic progressive neurological condition. I discussed with his yesterday after MRI, she will have him f/u with his neurologist upon discharge, she has home services in place. - Vitals & Intake/Output Vital Signs: Vital Signs Temperature 98.0 F 01/19/21 07:22 Pulse Rate 74 01/19/21 07:22 Respiratory Rate 18 01/19/21 07:22 Blood Pressure 94/55 01/19/21 07:22 O2 Sat by Pulse Oximetry 91 L 01/19/21 07:22 Intake & Output: Intake & Output 01/16/21 01/17/21 01/18/21 01/19/21 11:59 11:59 11:59 11:59 Intake Total 764 980 Output Total 700 1800 Balance 64 -820 Weight 110.8 kg - Lab Result Diagrams: 01/18/21 04:48 01/18/21 04:48 - Radiology Exams Ordered Rad Exams-Entire Visit: Radiology Procedures Category Date Time Status HEAD WITHOUT CONTRAST [CT] Stat Exams 01/17/21 18:18 Completed MRA BRAIN WITHOUT CONTRAST [MRI] Routine Exams 01/18/21 08:14 Completed MRI BRAIN W/O CONTRAST [MRI] Routine Exams 01/18/21 08:14 Completed Discharge Exam General Appearance: no apparent distress, obese Neurologic Exam: other (hypokinetic speech and movement diffusely, no gross focal deficits), No facial droop Respiratory Exam: normal breath sounds, lungs clear, No respiratory distress Cardiovascular Exam: regular rate/rhythm, normal heart sounds Gastrointestinal/Abdomen Exam: soft, No tenderness, No mass Extremity Exam: normal inspection, normal range of motion Skin Exam: normal color, warm, dry Wound Assessment: Skin/Wound Assessment Wound/Incision Assessment Start: 01/17/21 23:21 Text: Status: Active Freq: Protocol: Document 01/17/21 23:21 BS (Rec: 01/17/21 23:54 BS [id number]) Wound Photo Photo Taken No Final Diagnosis/Problem List - Final Discharge Diagnosis/Problem (1) Weakness Current Visit: Yes Status: Acute Code(s): R53.1 - WEAKNESS (2) Multiple system atrophy with bradykinesia Current Visit: Yes Status: Acute Code(s): G23.8 - OTHER SPECIFIED DEGENERATIVE DISEASES OF BASAL GANGLIA (3) Parkinson disease Current Visit: No Status: Chronic Code(s): G20 - PARKINSON'S DISEASE - Discharge Disposition: Home, Self-Care Condition: Stable Prescriptions: Continue Pravastatin Sodium 40 mg PO DAILY Cyanocobalamin (Vitamin B-12) [Vitamin B12] 5,000 mcg PO DAILY Loratadine 10 mg [Claritin 10 mg] 10 mg PO DAILY Guaifenesin [Mucinex] 600 mg PO 0900,1800 Carbidopa/Levodopa [Sinemet 25-250 mg Tablet] 2.5 tab PO 0500,0900,1300,1700 Metoprolol Succinate 100 mg [Toprol Xl 100 MG] 25 mg PO DAILY Tamsulosin HCl 0.4 mg PO 1800 Testosterone Cypionate 100 mg IM UD Mirabegron [Myrbetriq] 50 mg PO DAILY Aspirin 81 gm Chew [Baby Aspirin 81 mg Chew] 2 tab PO DAILY Polyethylene Glycol 3350 17 gm [Miralax Powder 17GM PACKET] 17 gm PO DAILY PRN PRN #30 packet PRN Reason: Constipation Spironolactone 25 mg [Aldactone 25 MG] 25 mg PO DAILY Furosemide 40 mg [Lasix 40 MG] 40 mg PO 0800,1300 Docusate Sodium 100 mg [Colace 100 MG] 240 mg PO 1800 Potassium Chloride 10 Meq Tab* [Klor Con 10 MEQ] 20 meq PO DAILY Ipratropium [place] 1 spray NS BID Pyridostigmine [place] 30 mg PO 0900,1300 Follow up with: CHRISTINA VEE MD [Primary Care Provider] -
[2021-01-19] MEDS: PATIENT OWN MEDICATION PO SCH ×2 (08:44→12:27)
[2021-01-19] MEDS: Toprol-Xl 25MG Tablets PO SCH (08:44)
[2021-01-19] MEDS: ECOTRIN 81 MG PO SCH (08:44)
[2021-01-19] MEDS: Klor Con 10 MEQ PO SCH (08:44)
[2021-01-19] MEDS: Aldactone 25 MG PO SCH (08:44)
[2021-01-19] MEDS: ZOCOR 20MG PO SCH (08:44)
[2021-01-19] MEDS: MYRBETRIQ PO SCH (08:44)
[2021-01-19] MEDS ORDERED: PATIENT OWN MEDICATION PO SCH (10:00)
[2021-01-19] MEDS ORDERED: NON-FORMULARY ITEM (Pravastatin Sodium [Pravastatin Sodium] 40 MG) PO SCH (10:00)
[2021-01-19 11:54] VITALS: BP 138/75; PULSE 89; O2SAT 95
== END 2021-01-19 16:20 | disposition home or self-care (01) ==
LOC: ED 17:33 → MED SURG 22:45
PROVIDERS: ADMIT Family Medicine; ATTEND Family Medicine
DX: R53.1 Weakness (principal); G20 Parkinson's disease; G23.8 Other specified degenerative diseases of basal ganglia; J44.9 Chronic obstructive pulmonary disease, unspecified; Z79.899 Other long term (current) drug therapy; Z20.828 Contact with and (suspected) exposure to other viral communicable diseases
CPT/HCPCS: 36000; 36415; 51702; 70450; 70544; 70551; 80053; 81001; 82947; 83735; 84484; 85025; 87077; 87086; 87186; 93005; 93041; 93268; 94760; 96360; 96361; 99285; G0378; Q3014; U0003; A9270-GY